=== PATIENT | female | born 1950 | race Caucasian/White ===

== ENCOUNTER 2017-05-14 11:55 | Day surgery (SDC) | payer MEDICARE ==
[2017-05-13 10:23] VITALS: BMI 47.0
[2017-05-14] MEDS ORDERED: Propofol 200 MG/20 ML VIAL ONE (13:11)
[2017-05-14] MEDS ORDERED: Lidocaine 1% PF 5 ML VIAL ONE (13:11)
--- NOTE | 2017-05-14 13:39 | OP ---
PREOPERATIVE DIAGNOSES: 1. Right upper quadrant pain. 2. Dysphagia. PROCEDURE: After informed consent was obtained, the patient was placed in the left lateral decubitus position. Anesthesia administered per the Anesthesia Department. Forward-viewing endoscope was ins erted into esophagus under direct visualization with ease and passed to the second portion of the duo denum with ease. Second portion of the duodenum and duodenal bulb were normal. The pylorus, antrum, body, fundus, and cardia were normal. Retroflexion in the stomach was normal except for a large hia alexandria hernia. The Z-line or squamocolumnar junction was slightly irregular and biopsies were taken to rule out Naidu's. The esophagus was otherwise normal. A 54-Khmer Salcido was passed with no resi stance. Reinsertion of the endoscope showed no post-dilatation changes. ASSESSMENT: 1. Large hiatal hernia. 2. Irregular squamocolumnar junction -- status post biopsy. 3. Otherwise, normal esophagogastroduodenoscopy. RECOMMENDATIONS: 1. Await histopathology. 2. Follow up in my office in 2-3 weeks.
== END 2017-05-14 14:06 | disposition home or self-care (01) ==
LOC: SDC 11:55
PROVIDERS: ATTEND Internal Medicine Gastroenterology
PROC: 0DB48ZX Excision of Esophagogastric Junction, Via Natural or Artificial Opening Endoscopic, Diagnostic (ICD-10-PCS; principal; 2017-05-14)
DX: K20.9 Esophagitis, unspecified (principal); R13.10 Dysphagia, unspecified; K44.9 Diaphragmatic hernia without obstruction or gangrene; E11.9 Type 2 diabetes mellitus without complications; I10 Essential (primary) hypertension; K21.9 Gastro-esophageal reflux disease without esophagitis; J45.909 Unspecified asthma, uncomplicated; Z79.1 Long term (current) use of non-steroidal anti-inflammatories (NSAID); Z79.51 Long term (current) use of inhaled steroids; Z79.84 Long term (current) use of oral hypoglycemic drugs; Z79.899 Other long term (current) drug therapy; Z91.048 Other nonmedicinal substance allergy status; Z96.653 Presence of artificial knee joint, bilateral; Z98.890 Other specified postprocedural states; Z87.891 Personal history of nicotine dependence; Z87.01 Personal history of pneumonia (recurrent)
CPT/HCPCS: 88305; 88312; 88313; J2001; J2704

== ENCOUNTER 2017-08-20 20:43 | Observation (INO) | payer MEDICARE ==
[2017-08-20 22:45] LABS: Anion Gap 12 mmol/L (10-20); BUN (Urea Nitrogen) 9 mg/dL (9.8-20.1); Calc. Creatinine Clearance 0 mL/min (70-130); Calcium 8.4 mg/dL (7.8-10.44); Carbon Dioxide 34 mmol/L (23-31); Chloride 98 mmol/L (98-107); Estimated GFR-MDRD 72; Glucose 101 mg/dL (80-115); Sodium 141 mmol/L (136-145)
[2017-08-20 22:51] LABS: Troponin I 0.014 ng/mL (< 0.028)
[2017-08-20 23:09] LABS: Potassium 2.6 mmol/L (3.5-5.1)
[2017-08-20] MEDS ORDERED: Potassium Chloride 20 MEQ TAB PO SCH (23:45)
[2017-08-20] MEDS ORDERED: Acetaminophen 325 MG TAB PO PRN (23:54)
[2017-08-21] MEDS ORDERED: Magnesium 2 GM/NS 0.9% 100 ML 2 GM in Premix Bag 1 BAG IVPB SCH (00:30)
[2017-08-21 01:15] VITALS: BMI 44.8
[2017-08-21 01:32] LABS: Troponin I 0.032 ng/mL (< 0.028)
[2017-08-21] MEDS ORDERED: hydrALAZINE 20 MG/ML VIAL SLOW IVP PRN (03:04)
[2017-08-21] MEDS ORDERED: HumaLOG 300 UNITS/3 ML VIAL SC PRN ×2 (03:04)
[2017-08-21] MEDS ORDERED: PROVENTIL INHALER 6.7 G (200 INHALATIONS) INH PRN (03:04)
[2017-08-21] MEDS ORDERED: Dextrose 5% in Water 1,000 ML IV PRN (03:04)
[2017-08-21] MEDS ORDERED: Acetaminophen 325 MG TAB PO PRN ×2 (03:04)
[2017-08-21] MEDS ORDERED: Mag-Al 1200 mg/1200 mg/30 ML UDCUP PO PRN (03:04)
[2017-08-21] MEDS ORDERED: Dextrose 50% Abboject 50 ML SYRINGE SLOW IVP PRN (03:04)
[2017-08-21] MEDS ORDERED: Milk Of Magnesia 30 ML UDCUP PO PRN (03:04)
--- NOTE | 2017-08-21 03:39 | HP ---
PRIMARY CARE PHYSICIAN: Dr. June Ramos. CHIEF COMPLAINT: Numbness and tingling and is in my hands and legs. HISTORY OF PRESENT ILLNESS: Ms. Ho is a very pleasant 67-year-old female that has a history of hy pertension as well as diabetes mellitus and COPD. She was in her usual state of health until the day before yesterday when she says both of her arms and legs started feeling numb and felt like they wer e going to sleep. She says this feeling got progressively worse and this was concerning, so she went to the emergency room. In the ER, she was found to have a potassium level of 2.6 and she also was f eeling generally weak and for this reason she was transferred to our facility for further evaluation. She was seen originally at the emergency room at [facility] in [place]. The patient states that she has not had any nausea, no vomiting, no diarrhea. She says she believes that she has been eatin g much better than she used to eat as she recently started on Weight [employer]. She said that she sta rted on 07/05. She has not had any excessive sweating. She has not been placed on any new medicatio ns. She has been on hydrochlorothiazide for quite some time and has never had any problems with that . When I asked if this has ever happened to her before, she says about 30 years ago. She was workin g at [employer] and the air conditioning went out and she says that shortly after that she started h aving very similar sensations. She went to her physician and was found that her potassium was low at that time, it was replaced and she says she had not had any problems since then. REVIEW OF SYSTEMS: Constitutional: No fevers, chills, no night sweats, no weight loss. HEENT: No headache, no dizziness, no visual changes, no sore throat, rhinorrhea, neck pain, no adenopathy. Pul monary: No hemoptysis, no cough, no wheezing. Cardiovascular: She said she had a brief episode of some chest pain at the other emergency room, but she attributes that as being an anxiety attack. She says it was very transient and it has since left. No PND, no orthopnea. Gastrointestinal: No abdo lowell pain, no nausea, no vomiting, no change in bowels. Genitourinary: No urinary frequency, hemat uria, no hesitancy. Neurologic: No focal weakness, numbness, no seizures. Psychiatric: No symptom s of anxiety or depression. Skin and integument: No skin changes. No rash. PAST MEDICAL HISTORY: Significant for hypertension, COPD, hyperlipidemia, gastroesophageal reflux di sease, and diabetes mellitus type 2. PAST SURGICAL HISTORY: She has had a x2, bilateral total knee replacements and a hernia re pair. ALLERGIES: No known drug allergies. SOCIAL HISTORY: She is a smoker and smokes a pack a day. Denies any alcohol use, no drugs. FAMILY HISTORY: No history of any inheritable diseases. CURRENT MEDICATIONS: Include omeprazole 40 mg daily, Spiriva HandiHaler 18 mcg daily, Ventolin 1 puf f q.4, metformin 500 mg twice a day, ropinirole 4 mg at bedtime, Breo Ellipta 1 inhalation daily, los lucrecia 100 mg daily, meloxicam 15 mg daily, metoprolol 50 mg twice a day, fluoxetine 40 mg twice a day , Flonase nasal spray daily, amlodipine 10 mg daily, hydrochlorothiazide 12.5 mg daily, Mucinex 600 m g daily, and Incruse Ellipta 1 inhalation daily. PHYSICAL EXAMINATION: GENERAL: She is alert and oriented. She appears to be in no acute distress. VITAL SIGNS: Her blood pressure was 119/73, heart rate 58, respiratory rate of 22, temperature is 98 .2. HEENT: Her pupils are equal, round, and reactive. Extraocular muscles are intact. Her sclerae are anicteric. Throat: No erythema, no exudates. NECK: No adenopathy, no bruits. LUNGS: Clear. No wheezing, no rales. CARDIOVASCULAR: She has a normal S1, S2. There is no S3 or S4. No murmurs, clicks, or rubs. ABDOMEN: Obese, it is soft, nontender, nondistended. Positive for bowel sounds. No rebound or guar ding. EXTREMITIES: There is no clubbing, cyanosis, no edema. She does have some chronic venous stasis beatrice nges and some hammertoe deformities. NEUROLOGIC: The exam is nonfocal once again. LABORATORY RESULTS: Sodium 141, potassium 2.6, chloride is 98, CO2 is 34, BUN of 9, creatinine 0.79, glucose is 101. Troponin 0.010. EKG was sinus rhythm, the rate was 56 and there were some nonspeci fic ST wave changes. ASSESSMENT: This is a pleasant 67-year-old female that presented to the ER with symptomatic hypokale martha. It is unclear why her potassium is still low that is possible it could be related to hydrochlor othiazide. However, she has been on this medication for some time and apparently had been stable on it. It could be that with a new diet that she has been on in the last month and a half. Her potassi um intake may have been more limited. She does not appear to have any gastrointestinal losses. She will be placed in observation. We will go ahead and replace both the magnesium, which turned out to be low as well as her potassium and hopefully once this was replaced her symptoms will resolve and sh e can be discharged home. I did explain to her that she should have close followup and monitoring wi th regards to her potassium to see if it will be maintained in the normal range.
[2017-08-21 04:49] LABS: Troponin I 0.025 ng/mL (< 0.028)
[2017-08-21] MEDS ORDERED: Potassium Chloride 20 MEQ TAB PO SCH ×2 (05:00→07:45)
[2017-08-21] MEDS ORDERED: Ipratropium Bromide 2.5 ml Neb NEB SCH (06:00)
[2017-08-21] MEDS ORDERED: Mometasone/Formoterol 120 PUFF INHALER INH SCH (06:30)
[2017-08-21 07:28] LABS: Anion Gap 14 mmol/L (10-20); BUN (Urea Nitrogen) 8 mg/dL (9.8-20.1); Calc. Creatinine Clearance 147 mL/min (70-130); Calcium 8.6 mg/dL (7.8-10.44); Carbon Dioxide 31 mmol/L (23-31); Chloride 100 mmol/L (98-107); Estimated GFR-MDRD 78; Glucose 110 mg/dL (80-115); Sodium 142 mmol/L (136-145)
[2017-08-21 07:31] LABS: Potassium 2.8 mmol/L (3.5-5.1)
[2017-08-21 07:49] LABS: Free T4 (Free Thyroxine) 1.12 ng/dL (0.70-1.48); Thyroid Stimulating Hormone 0.2058 uIU/mL (0.35-4.94)
[2017-08-21] MEDS ORDERED: metFORMIN 500 MG TAB PO SCH (08:00)
[2017-08-21] MEDS ORDERED: Non-Formulary Item 1 EACH (Fluticasone/Vilanterol [Breo Ellipta 200-25 Mcg Inh] 1 EACH) IH SCH (09:00)
[2017-08-21] MEDS ORDERED: FLUoxetine HCl 20 MG CAP PO SCH (09:00)
[2017-08-21] MEDS ORDERED: Losartan 25 MG TAB PO SCH (09:00)
[2017-08-21] MEDS ORDERED: Amlodipine 10 MG TAB PO SCH (09:00)
[2017-08-21] MEDS ORDERED: Fluticasone Propionate Nasal Spray 16 gm Bottle NASAL SCH (09:00)
[2017-08-21] MEDS ORDERED: Non-Formulary Item 1 EACH (Umeclidinium Bromide [Incruse Ellipta] 1 INH) IH SCH (09:00)
[2017-08-21] MEDS ORDERED: Meloxicam 15 MG TAB PO SCH (09:00)
[2017-08-21] MEDS ORDERED: Metoprolol Tartrate 50 MG TAB PO SCH (09:00)
[2017-08-21] MEDS ORDERED: Famotidine 20 MG TAB PO SCH (09:00)
[2017-08-21] MEDS ORDERED: Spiriva 18 MCG CAP (Box of 5 Caps) INH SCH (09:00)
[2017-08-21] MEDS ORDERED: Enoxaparin Sodium 40 MG/0.4 ML SYRINGE SC SCH (09:00)
[2017-08-21] MEDS ORDERED: guaiFENesin ER 600 MG TAB PO SCH (09:00)
--- NOTE | 2017-08-21 10:30 | RAD ---
PA AND LATERAL CHEST: Date: 08/21/17 HISTORY: Shortness of breath. FINDINGS: Comparison made with exam of 08/05/17. The heart size is borderline. There is mild pulmonary vascular congestion. There is evidence of old g ranulomatous disease. No lobar consolidation, pneumothorax, or pleural effusions are seen. There are degenerative changes in the spine. IMPRESSION: Findings suggestive of mild CHF. POS: [facility]
[2017-08-21 12:03] LABS: Anion Gap 10 mmol/L (10-20); BUN (Urea Nitrogen) 8 mg/dL (9.8-20.1); Calc. Creatinine Clearance 143 mL/min (70-130); Calcium 8.7 mg/dL (7.8-10.44); Carbon Dioxide 34 mmol/L (23-31); Chloride 102 mmol/L (98-107); Estimated GFR-MDRD 75; Glucose 158 mg/dL (80-115); Sodium 142 mmol/L (136-145)
[2017-08-21 12:16] LABS: Potassium, Urine 56.1 mmol/L
[2017-08-21 15:34] VITALS: BP 108/58; TEMP 97.9
--- NOTE | 2017-08-21 18:44 | DIS ---
DATE OF ADMISSION: 08/21/2017 DATE OF DISCHARGE: 08/21/2017 PRIMARY CARE PROVIDER: June Ramos PA-C DISPOSITION: Discharged home. FINAL DIAGNOSES: Hypokalemia, hypertension, chronic obstructive pulmonary disease, dyslipidemia and diabetes mellitus type 2. DISCHARGE MEDICATIONS: Includes Ellipta one inhalation daily, amlodipine 10 mg a day, Flonase 1 spra y each nose daily, Prozac 40 mg twice a day, metoprolol 50 mg twice a day, meloxicam 15 mg a day, Coz aar 100 mg a day, Breo Ellipta 225 one inhalation daily, ropinirole 4 mg at bedtime, metformin 500 mg p.o. b.i.d., Ventolin HFA inhaler 1 puff q.4 hours p.r.n., Spiriva HandiHaler one inhalation daily, omeprazole 40 mg a day. ALLERGIES: None. CODE STATUS: FULL. PENDING AT THE TIME OF DISCHARGE: Nothing. DIET: Diabetic. HOSPITAL COURSE: Patient transferred from [facility] to [facility]. She was in her usual stat e of health until she started feeling numb and tingling all over. She went to the emergency room whe re she was generally feeling weak, found to have potassium of 2.6, was transferred here. She has no history of nausea, vomiting, or diarrhea. She was given p.o. potassiums. Her followup basic metabol ic profile reveals potassium of 4.0. Her hydrochlorothiazide was stopped. She is being discharged h ome. Her renal function relatively was normal. BUN 8, creatinine 0.74 and 0.76. She is being disch arged home. She is given no potassium supplementation at this time. Her hydrochlorothiazide has bee n held as this was considered contributory. Spot urine sodium and potassium were done which revealed sodium of 152, potassium of 56 which did not suggest any adrenal problem. The patient is to see Dr. Ramos within 1 week. She will need a basic metabolic profile. Then, if her potassium is again low, she will need further investigation. It is pertinent that the patient had no edema and I feel c omfortable discharging her back home. She has been told if she has recurrent symptoms, please return to the emergency room.
[2017-08-21] MEDS ORDERED: rOPINIRole HCl 1 MG TAB PO SCH (21:00)
--- NOTE | 2017-08-23 18:04 | EKG ---
Test Reason : Blood Pressure : / mmHG Vent. Rate : 056 BPM Atrial Rate : 056 BPM P-R Int : 192 ms QRS Dur : 088 ms QT Int : 494 ms P-R-T Axes : 079 010 024 degrees QTc Int : 476 ms Sinus bradycardia Nonspecific ST and T wave abnormality Abnormal ECG Confirmed by PHANI MAN, JOSLYN ([id number]), graphic editor SARAH BROWNING ([id number]) on 08/23/2017 6:03:41 PM Referred By: Confirmed By:JOSLYN JERONIMO MD
== END 2017-08-21 16:04 | disposition home or self-care (01) ==
LOC: ERS 20:43 → 2SW 22:06
PROVIDERS: ADMIT Internal Medicine; ATTEND Internal Medicine
DX: E87.6 Hypokalemia (principal); I10 Essential (primary) hypertension; J44.9 Chronic obstructive pulmonary disease, unspecified; E78.5 Hyperlipidemia, unspecified; E11.9 Type 2 diabetes mellitus without complications; K21.9 Gastro-esophageal reflux disease without esophagitis; F17.210 Nicotine dependence, cigarettes, uncomplicated; Z79.84 Long term (current) use of oral hypoglycemic drugs; Z79.899 Other long term (current) drug therapy
CPT/HCPCS: 71046; 80048 ×3; 82962; 83735; 84133; 84300; 84439; 84443; 84484 ×3; 93005; 94640 ×2; 94664; 99285; G0378; 36415; 36416; J1650; J3475; J7644

== ENCOUNTER 2018-01-04 02:26 | Observation (INO) | payer MEDICARE ==
[2018-01-04 02:55] LABS: #Basophils 0.1 thou/uL (0.0-0.2); #Eosinphils 0.3 thou/uL (0.0-0.7); #Lymphocytes 3.1 thou/uL (1.20-3.40); #Monocytes 1.2 thou/uL (0.11-0.59); %Basophils 0.6 % (0.0-1.0); %Eosinophils 1.9 % (0.0-10.0); %Monocytes 8.2 % (0.0-10.0); %Neutrophils 68.4 % (42.0-75.0); Hemoglobin 13.6 g/dL (12.0-16.0); Mean Corpuscular HGB CONC 34.2 g/dL (32.0-36.0); Mean Corpuscular Hemoglobin 31.2 pg (27.0-31.0); Mean Corpuscular Volume 91.4 fL (78.0-98.0); Mean Platelet Volume 7.3 fL (7.4-10.4); Platelet Count 273 thou/uL (130-400); Red Blood Cell (RBC) Count 4.34 mill/uL (4.20-5.40); White Blood Cell (WBC) Count 14.6 thou/uL (4.8-10.8)
[2018-01-04 03:17] LABS: ALT (SGPT) 22 U/L (8-55); AST (SGOT) 26 U/L (5-34); Albumin 3.8 g/dL (3.4-4.8); Alkaline Phosphatase 53 U/L (40-150); Anion Gap 12 mmol/L (10-20); BUN (Urea Nitrogen) 16 mg/dL (9.8-20.1); Bilirubin, Total 0.3 mg/dL (0.2-1.2); CK (CPK) 107 U/L (29-168); Calc. Creatinine Clearance 0 mL/min (70-130); Calcium 9.7 mg/dL (7.8-10.44); Carbon Dioxide 27 mmol/L (23-31); Chloride 101 mmol/L (98-107); Estimated GFR-MDRD 65; Globulin 3.2 g/dL (2.4-3.5); Glucose 130 mg/dL (80-115); Lipase 32 U/L (8-78); Potassium 3.6 mmol/L (3.5-5.1); Sodium 136 mmol/L (136-145)
[2018-01-04 03:22] LABS: CKMB 1.3 ng/mL (0-6.6); Troponin I Less than 0.010 ng/mL (< 0.028)
[2018-01-04 03:29] LABS: Bilirubin Negative (Negative); Blood, Urine Negative (Negative); Clarity CLEAR (Clear); Glucose, Urine (Dipstick) Negative (Negative); Leukocyte Negative (Negative); Nitrite Negative (Negative); Protein, Urine (Dipstick) Negative (Neg-Trace); Specific Gravity, Urine 1.005 (1.002-1.036); Urobilinogen 0.2 mg/dL (0.2-1.0)
[2018-01-04 06:15] LABS: Troponin I Less than 0.010 ng/mL (< 0.028)
[2018-01-04] MEDS ORDERED: Ondansetron HCl/PF 4 MG/2 ML Vial IVP PRN ×2 (07:48→11:02)
[2018-01-04] MEDS ORDERED: Ondansetron ODT 4 MG TAB SL PRN (07:48)
[2018-01-04] MEDS ORDERED: Aspirin 325 MG TAB PO SCH (09:00)
[2018-01-04 09:07] LABS: Troponin I Less than 0.010 ng/mL (< 0.028)
[2018-01-04 09:36] VITALS: BMI 43.5
[2018-01-04] MEDS ORDERED: hydrALAZINE 20 MG/ML VIAL SLOW IVP PRN (10:22)
[2018-01-04] MEDS ORDERED: Lorazepam 0.5 MG TAB PO SCH (10:45)
--- NOTE | 2018-01-04 10:55 | RAD ---
CHEST 1 VIEW: HISTORY: COPD. Pain. COMPARISON: 08/21/17. FINDINGS: Normal cardiac silhouette. Pulmonary vessels and hilum are normal. Costophrenic angles are clear. No consolidation or mass. No pneumothorax or osseous abnormalities. Stable calcified granuloma in t he right lung base. IMPRESSION: No acute cardiopulmonary process. POS: [facility]
[2018-01-04] MEDS ORDERED: Dextrose 50% Abboject 50 ML SYRINGE SLOW IVP PRN (11:01)
[2018-01-04] MEDS ORDERED: Dextrose 5% in Water 1,000 ML IV PRN (11:01)
[2018-01-04] MEDS ORDERED: Nitroglycerin 0.4 MG TAB (25 Tab Bottle) PO PRN (11:01)
[2018-01-04] MEDS ORDERED: Insulin Regular 300 UNITS/3 ML VIAL SC PRN ×2 (11:01)
[2018-01-04] MEDS ORDERED: Calcium Carbonate 500 MG ChewTAB PO PRN (11:02)
[2018-01-04] MEDS ORDERED: Milk Of Magnesia 30 ML UDCUP PO PRN (11:02)
[2018-01-04] MEDS ORDERED: Acetaminophen 325 MG TAB PO PRN (11:02)
[2018-01-04] MEDS ORDERED: Senokot 8.6 MG TAB PO PRN (11:02)
[2018-01-04] MEDS ORDERED: Ondansetron ODT 4 MG TAB PO PRN (11:02)
[2018-01-04] MEDS ORDERED: Metoprolol Tartrate 25 MG TAB PO SCH (11:15)
[2018-01-04] MEDS ORDERED: Potassium Chloride 20 MEQ TAB PO SCH (11:15)
[2018-01-04] MEDS ORDERED: Spiriva 18 MCG CAP (Box of 5 Caps) INH SCH (11:15)
--- NOTE | 2018-01-04 11:25 | HP ---
DATE OF ADMISSION: 01/04/2018 PRIMARY CARE PHYSICIAN: Dr. June Ramos. CHIEF COMPLAINT: Chest discomfort with right-sided numbness and tingling. HISTORY OF PRESENT ILLNESS: The patient is a 67-year-old female with hypertension, hyperlipidemia, C OPD on home oxygen at night and diabetes mellitus type 2, presented to the emergency room with above complaint. Around 10:30 p.m. while she was at home, she had sudden onset of chest discomfort that wa s pressure-like, radiating to her back and neck. She also had some nausea with some headache over th e occipital area. The headache was more or less constant and pressure-like, without any aggravating or relieving factor. She denies any aggravating or relieving factor for chest pain. She also felt s omewhat dizzy. At the same time, she noticed right-sided numbness and tingling. She called EMS. No palpitations, syncope blurring of vision, facial asymmetry reported. In the emergency room, her initial vital signs showed temperature 98.7, respiration of 19, pulse rate of 60, blood pressure of 137/81 with O2 saturation 95% on [address] scan of the bra in was negative for acute CVA. The chest discomfort resolved after nitroglycerin by the EMS. CT ang iogram of the chest was negative as well. EKG showed sinus bradycardia with heart rate of [address]-T wave changes. She denies any chest pain at this time. PAST MEDICAL HISTORY: 1. Hypertension 2. Hyperlipidemia. 3. Chronic obstructive pulmonary disease on home oxygen, especially at night. 4. Gastroesophageal reflux disease. 5. Diabetes mellitus type 2. 6. Morbid obesity with a BMI of 43.5. 7. Hospitalization in 07/2017 for hypokalemia. 8. Chronic kidney disease stage 2. 9. Large hiatal hernia. 10. Episodic vertigo. PAST SURGICAL HISTORY: 1. . 2. Bilateral total knee replacement. 3. Hernia repair. 4. EGD and fine needle aspiration biopsy in 09/2016. ALLERGIES: No known drug allergies. CURRENT HOME MEDICATIONS: Patient does not remember all of her home medications. We will obtain acc urate list of medication from the pharmacy. She does not take aspirin on a daily basis. SOCIAL HISTORY: Patient continues to smoke up to 1 pack a day on daily basis. No alcohol or drug us e. She is FULL CODE and makes her own decision with the help of her family. FAMILY HISTORY: Negative for inheritable disease. REVIEW OF SYSTEMS: The following complete review of systems was negative, unless otherwise mentioned in the HPI or below: Constitutional: Weight loss or gain, ability to conduct usual activities. Skin: Rash, itching. Eyes: Double vision, pain. ENT/Mouth: Nose bleeding, neck stiffness, pain, tenderness. Cardiovascular: Palpitations, dyspnea on exertion, orthopnea. Respiratory: Shortness of breath, wheezing, cough, hemoptysis, fever or night sweats. Gastrointestinal: Poor appetite, abdominal pain, heartburn, nausea, vomiting, constipation, or diarr hea. Genitourinary: Urgency, frequency, dysuria, nocturia. Musculoskeletal: Pain, swelling. Neurologic/Psychiatric: Anxiety, depression. Allergy/Immunologic: Skin rash, bleeding tendency. PHYSICAL EXAMINATION: VITAL SIGNS: As discussed above. GENERAL: A 67-year-old female in no apparent distress. Denies any new focal findings. HEENT: Head is atraumatic, normocephalic. Sclerae are anicteric. Moist mucous membranes. No oral lesion. NECK: Supple, no JVD appreciated. No carotid bruit. LUNGS: Clear to auscultation bilaterally, no wheezing, rales or rhonchi. HEART: S1, S2 present. Regular rate and rhythm, no significant murmur, rubs, or gallops appreciated . ABDOMEN: Soft, nontender, bowel sounds present. EXTREMITIES: No edema or calf tenderness. NEUROLOGIC: Grossly nonfocal, moves all four extremities except for numbness over the right foot. C ranial nerves II through XII were normal on examination. Power was 5/5 in all extremities. PSYCHIATRY: Alert, awake, oriented x3. SKIN: Warm and dry. LYMPH NODES: No palpable lymph nodes in the neck. PERIPHERAL VASCULAR: Radial pulses palpable bilaterally. MUSCULOSKELETAL: No joint swelling or tenderness. LABORATORY FINDINGS: WBC was 14.6 without any left shift. Hemoglobin was 13.6. Troponins were nega tive. Ammonia was normal. BNP was normal. Magnesium 1.9, BUN 16, creatinine 0.89, sodium 136, pota ssium 3.6. TSH was normal. Urinalysis was negative for WBC, bacteria. IMAGING: EKG by my review as discussed above. Chest x-ray by my review was negative for infiltrate. CT scan of the brain and CT dissection protocol as discussed above. IMPRESSION AND PLAN: 1. Sudden onset of right-sided numbness and tingling, rule out transient ischemic attack. Patient w ill be monitored in the stroke unit. We will consult Neurology. We will obtain MRI of the brain, ca rotid Doppler and echocardiogram. We will continue stroke protocol with neuro checks and NIH. We wi ll consult Physical Therapy. Patient passed swallow evaluation. We will start low dose aspirin and statin. We will check fasting lipid profile in a.m. 2. Chest discomfort. Her troponins are negative so far. Echocardiogram will be obtained. We will schedule a stress test as outpatient. 3. Tobacco dependence. The patient was extensively counseled to quit smoking. 4. Chronic obstructive pulmonary disease on home oxygen. We will resume her home medications with n ebulizer treatments. 5. Hypertension. We will resume home medications once confirmed. 6. Diabetes mellitus type 2. We will hold metformin and start insulin sliding scale. 7. Anxiety and depression. We will continue Prozac. 8. Morbid obesity with a BMI of 43.5. Lifestyle modification emphasized. 9. Gastroesophageal reflux disease with large hiatal hernia. We will continue proton pump inhibitor s. 10. Chronic respiratory failure on home oxygen, especially at night. 11. Episodic vertigo. DISPOSITION: Probably in 24 hours. Plan of care was discussed with the patient in detail. She stated understanding.
--- NOTE | 2018-01-04 12:08 | MRI ---
MRI BRAIN WITHOUT CONTRAST: HISTORY: Stroke. COMPARISON: None. TECHNIQUE: Brain MRI is performed without intravenous Gadolinium administration. Multisequential, multiplanar i maging is performed. FINDINGS: No hemorrhage on the axial gradient echo sequence. Calvarium has a normal T1 marrow signal intensity. Midline brain parenchymal structures are unremark able. Central arterial flow voids are maintained. Absent restricted diffusion. Minimal white matter hyperintensities on the FLAIR sequence are felt to be due to chronic small-vesse l ischemic change. No parenchymal mass, mass effect, or midline shift. Age-appropriate atrophy. Cortical myles-white ma tter differentiation is preserved. No evidence of hydrocephalus. Adequate aeration of the sinuses and mastoid air cells. IMPRESSION: Absent restricted diffusion. No acute infarct. POS: [facility]
[2018-01-04] MEDS ORDERED: Ipratropium Bromide 2.5 ml Neb NEB SCH (13:00)
--- NOTE | 2018-01-04 13:08 | CON ---
DATE OF CONSULTATION: 01/04/2018 CHIEF COMPLAINT: Numbness. HISTORY OF PRESENT ILLNESS: The patient reports she was not feeling really well yesterday, and she came to the ER with a history of numbness of the right side of the body and face and arm and leg. She also has chest discomfort, which was more of a pressure, radiating to her back and neck. She also had headache yesterday, and currently she feels she is back to baseline. She had various investigations done in the ER including CT of the brain and CT angiogram of the chest and all of them were negative. PREVIOUS MEDICAL HISTORY: Hypertension; hyperlipidemia; COPD, on home oxygen at night; gastroesophageal reflux disease; diabetes, type 2; chronic kidney disease, stage 2; large hiatus hernia; episodic vertigo. PAST SURGICAL HISTORY: , bilateral total knee replacement, hernia repair, and EGD with fine-needle aspiration and biopsy. ALLERGIES: No known drug allergies. CURRENT MEDICATIONS: She is on albuterol nebulizer, amlodipine, atorvastatin, calcium carbonate, and IV fluids plus Pepcid, Prozac, glucagon as needed, and Apresoline as needed, plus insulin sliding scale along with Cozaar and metoprolol at the hospital. FAMILY HISTORY: Negative for CVA. SOCIAL HISTORY: The patient is a smoker, smokes 1 pack a day. Does not drink and lives with her family. REVIEW OF SYSTEMS: Pulmonary: Positive for shortness of breath. Cardiac: Positive for chest pain. Neurological: Positive for dizziness and right-sided numbness, which was transient and lasted 6 hours. Endocrine: Positive for diabetes and variation in her blood sugars. Dermatologic: Negative for any rash. Hematologic: Negative for any bleeding problems. GI: Negative for any nausea, vomiting, or any GI disturbance. LABORATORY WORKUP: White count 14.6, hemoglobin 13.6, hematocrit 39.7, platelets 273. Sodium 136, potassium 3.6, chloride 101, BUN 16, creatinine 0.86 , glucose 130, AST is 26, ALT 22, alkaline phosphatase 53, CPK 107, and TSH 1.8. She is pending further workup including lipid profile, and her MRI has been completed, report is pending at this time PHYSICAL EXAMINATION: GENERAL APPEARANCE: Somewhat obese lady, who is in bed. VITAL SIGNS: Blood pressure is 147/82, temperature 97.6, pulse 57, respiratory rate 18, O2 sats 96%. CHEST: Clear vesicular breathing. CARDIOVASCULAR: S1 and S2 heard, no murmurs. Carotids are clear. ABDOMEN: Soft, nontender, no organomegaly noted. NEUROLOGIC: Cranial nerves: Normal extraocular movements. Pupils are normal and reactive to light and no facial asymmetry noted. Tongue midline. No atrophy noted and normal elevation of palate. Normal hearing to finger rub. Sensation normal bilaterally. Pupils reactive to light equally. MOTOR EXAMINATION: Bulk normal, tone normal, strength 5/5 throughout in iliopsoas, hamstrings, quadriceps, ankle dorsiflexion, plantar flexion, deltoid, biceps, triceps, wrist extension/flexion, and finger extension/flexion bilaterally and deep tendon reflexes were 2+ throughout. Cerebellar: Normal [id number] heel to ayala. Sensory normal vibration, temperature, and proprioception bilaterally, and touch bilaterally. Gait not tested. IMPRESSION: Patient is a 67-year-old lady, who seems to have had some chest discomfort associated with some shortness of breath along with headache and right upper and lower extremity numbness, which lasted about 6 hours, which resolved completely at this time. She is not on aspirin at home and has risk factors for stroke including diabetes and hypertension. Her examination was normal. I did not detect any neurological deficits. Her clinical diagnosis is most consistent with transient ischemic attack. RECOMMENDATIONS: Complete her stroke workup including echocardiogram, and please note, if MRI is normal, she can go home once medically stable from the neurology standpoint. I will follow up on her MRI report. For stroke prophylaxis, we can use aspirin and agree with statin. ADDENDUM: MRI Brain is negative for acute CVA. Please continue ASA, complete her stroke work up. Call neurology if any questions. RAMY
--- NOTE | 2018-01-04 13:28 | ULT ---
CAROTID ULTRASOUND: HISTORY: Transient ischemic attack. COMPARISON: None. TECHNIQUE: Shaw scale, color flow, Doppler imaging with spectral waveform analysis is performed of the carotid a nd vertebral arteries performed. FINDINGS: RIGHT CAROTID: No significant atherosclerotic disease. Peak systolic velocity of the common carotid artery is 80.5 cm/s. Peak systolic velocity of internal carotid artery is 63.2 cm/2. Systolic ICA to CCA ratio is 0.8. LEFT CAROTID: Mild atherosclerotic disease involving the distal common carotid artery and carotid bifurcation. Pea k systolic velocity of the common carotid artery is 100.9 cm/s. Peak systolic velocity of the intern architect al carotid artery is 97.0 cm/s. Systolic ICA to CCA ratio is 1.0. Antegrade flow in both vertebral arteries. Complex predominantly cystic lesion in the left thyroid lobe, incompletely evaluated. IMPRESSION: 1. No sonographic evidence of hemodynamically significant stenosis. 2. Complex cystic lesion in the left thyroid lobe, incompletely evaluated. Nonemergent thyroid ultr asound can be performed. Note, the patient has had a thyroid ultrasound in August of 2016 which does demonstrate some of these cystic lesions to be present. POS: [facility]
--- NOTE | 2018-01-04 14:43 | CT ---
PRELIMINARY REPORT/[facility]/EMERGENTY AFTER-HOURS PROCEDURE CT Head Without Intravenous Contrast CLINICAL HISTORY: 67 years old, female; Signs and symptoms; Dizziness; Patient HX: Ems presents to ed f[facility] with HX of co pd with C/O l upper cp with radiation to back that began 4 hours [employer]. Following ems arrival to site, pt C/O rue and rle numbness. Pt given 1 nitro en route that relieved pt's cp. Pt reports SX began wit h BILLS. Pt is on o2 at home. ; Additional info: Pain on both shoulders/bills TECHNIQUE: Axial computed tomography images of the head/brain without intravenous contrast. COMPARISON: No relevant prior studies available. FINDINGS: Brain: Normal. No hemorrhage. No significant white matter disease. No edema. Ventricles: Normal. No ventriculomegaly. Bones/joints: Normal. No acute fracture. Soft tissues: Normal. Sinuses: Unremarkable as visualized. No acute sinusitis. Mastoid air cells: Unremarkable as visualized. No mastoid effusion. IMPRESSION: No acute intracranial hemorrhage. Thank you for allowing us to participate in the care of your patient. Dictated and Authenticated by: Edgardo Barakat MD 01/04/2018 3:49 AM Central Time ([place] & [place]) FINAL REPORT CT HEAD NONCONTRAST: FINDINGS/IMPRESSION: Agree with the preliminary interpretation provided above. No acute intracranial hemorrhage or mass effect.
--- NOTE | 2018-01-04 14:46 | CT ---
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 Following ems arrival to site, pt C/O rue and rle numbness. Pt given 1 nitro en route that relieved pt's cp. Pt reports SX began with BILLS. Pt is on o2 at home. ; Additional info: Pain on both shoulders/bills TECHNIQUE: Axial computed tomographic angiography images of the chest with intravenous contrast using pulmonary embolism protocol. MIP reconstructed images were created and reviewed. COMPARISON: No relevant prior studies available. FINDINGS: Pulmonary arteries: There is no evidence of peripheral filling defects within the pulmonary arterial circulation to suggest pulmonary embolism. Aorta: There is no evidence of aortic dissection, leak, rupture, or other complications. The aorta is normal. Lungs: There is a pulmonary parenchymal calcification consistent with remote granulomatous organism e xposure. There is subpleural atelectasis of the dependent portions of the lungs. No mass. Pleural space: Normal. No significant effusion. No pneumothorax. Heart: Normal. No cardiomegaly. No significant pericardial effusion. No evidence of RV dysfunction. Thyroid: There is heterogeneity of the thyroid gland possibly representing a goiter. Bones/joints: No acute fracture. No dislocation. Soft tissues: Normal. Lymph nodes: Normal. No enlarged lymph nodes. IMPRESSION: 1. There is no CT evidence of acute pulmonary embolism. 2. There is no evidence of aortic dissection, leak, rupture, or other complications. 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 Following ems arrival to site, pt C/O rue and rle numbness. Pt given 1 nitro en route that relieved pt's cp. Pt reports SX began with BILLS. Pt is on o2 at home. ; Additional info: Pain on both shoulders/bills TECHNIQUE: Axial computed tomographic angiography images of the abdomen with intravenous contrast. MIP reconstructed images were created and reviewed. COMPARISON: No relevant prior studies available. FINDINGS: Aorta: There is no evidence of aortic dissection, leak, rupture, or other complications. The aorta de monstrates mild atherosclerotic calcification. Celiac trunk and mesenteric arteries: No acute findings. No occlusion or significant stenosis. Renal arteries: No acute findings. No occlusion or significant stenosis. Lung bases: Normal. No mass. No consolidation. Liver: There is a ill-defined peripherally enhancing structure within the RIGHT hepatic lobe (probabl y segment 4/7). Finding is nonspecific and may represent hemangioma or neoplasm. Gallbladder and bile ducts: Normal. No calcified stones. No ductal dilation. Pancreas: Normal. No ductal dilation. No mass. Spleen: The spleen demonstrates punctate calcifications, consistent with remote granulomatous organis m exposure. Adrenals: Normal. No mass. Kidneys and ureters: The left kidney is normal. There is a focal right renal hypodensity that cannot be further characterized on the current examination. No hydronephrosis. Stomach and bowel: Normal. No obstruction. No mucosal thickening. Intraperitoneal space: Normal. No significant fluid collection. No free air. Bones/joints: No acute fracture. No dislocation. Soft tissues: Normal. No mass. Lymph nodes: Normal. No enlarged lymph nodes. IMPRESSION: 1. There is no evidence of aortic dissection, leak, rupture, or other complications. 2. There is a ill-defined peripherally enhancing structure within the RIGHT hepatic lobe. Finding is nonspecific and may represent hemangioma or neoplasm. Comparison with prior imaging if available is a dvised. If unavailable, nonemergent outpatient evaluation with MRI liver protocol is advised. Findings were discussed with TERRI FELIX at 01/04/2018 3:55 AM CDT. Thank you for allowing us to participate in the care of your patient. Dictated and Authenticated by: Edgardo Barakat MD 01/04/2018 3:56 AM Central Time ([place] & [place]) FINAL REPORT CT ANGIOGRAM OF THORCIC AND ABDOMINAL AORTA: History Dissection protocol. COMPARISON: None. TECHNIQUE: CT angiogram of the thoracic and abdominal aorta are performed in the axial plane. Three-dimensional reformatted images are submitted for interpretation. FINDINGS: This report is in agreement with the preliminary report by [facility]. No evidence of aneurysm or dissectio n. Heterogneeous-appearing thyroid gland. Nonemergent thyroid ultrasound is recommended. There is an enhancing focus in the right hepatic lobe. Better interrogation with a dedicated liver m ass protocol CT is recommended. Conversely, abdomen MRI can be performed. POS: [facility]
[2018-01-04] MEDS: Potassium Chloride 10 MEQ TAB PO SCH (18:29)
[2018-01-04] MEDS: Docusate 100 MG CAP PO SCH (20:42)
[2018-01-04] MEDS: Famotidine 20 MG TAB PO SCH (20:43)
[2018-01-04] MEDS: Metoprolol Tartrate 25 MG TAB PO SCH (20:43)
[2018-01-04] MEDS ORDERED: Amlodipine 5 MG TAB PO SCH (21:00)
[2018-01-04] MEDS ORDERED: Atorvastatin Calcium 10 MG TAB PO SCH (21:00)
[2018-01-04] MEDS ORDERED: Metoprolol Tartrate 50 MG TAB PO SCH (21:00)
[2018-01-04] MEDS ORDERED: Ropinirole Hcl [Ropinirole Er] 4 MG PO SCH ×2 (21:00→21:30)
[2018-01-05 05:06] LABS: #Basophils 0.1 thou/uL (0.0-0.2); #Eosinphils 0.2 thou/uL (0.0-0.7); #Monocytes 0.8 thou/uL (0.11-0.59); #Neutrophils 6.4 thou/uL (1.40-6.50); %Basophils 0.6 % (0.0-1.0); %Eosinophils 2.3 % (0.0-10.0); %Lymphocytes 20.9 % (21.0-51.0); %Monocytes 8.2 % (0.0-10.0); Hemoglobin 13.4 g/dL (12.0-16.0); Mean Corpuscular Hemoglobin 30.3 pg (27.0-31.0); Mean Corpuscular Volume 91.9 fL (78.0-98.0); Mean Platelet Volume 7.5 fL (7.4-10.4); Platelet Count 250 thou/uL (130-400); RBC Distribution Width 13.1 % (11.5-14.5); Red Blood Cell (RBC) Count 4.42 mill/uL (4.20-5.40); White Blood Cell (WBC) Count 9.4 thou/uL (4.8-10.8)
[2018-01-05 05:41] LABS: Anion Gap 13 mmol/L (10-20); BUN (Urea Nitrogen) 13 mg/dL (9.8-20.1); Calc. Creatinine Clearance 143 mL/min (70-130); Calcium 9.8 mg/dL (7.8-10.44); Carbon Dioxide 27 mmol/L (23-31); Cardiac Risk 3.6 (Less than 4.5); Chloride 104 mmol/L (98-107); Cholesterol 155 mg/dl (< 200 Desired); Estimated GFR-MDRD 78; Glucose 104 mg/dL (80-115); HDL Cholesterol 43 mg/dL (>60 Neg Risk); LDL Cholesterol, Calculated 87 mg/dL; Potassium 4.2 mmol/L (3.5-5.1); Sodium 140 mmol/L (136-145); Triglycerides 125 mg/dL (Less than 150)
[2018-01-05 08:04] VITALS: BP 146/77; TEMP 98.5
[2018-01-05] MEDS ORDERED: Hydrochlorothiazide 25 MG TAB PO SCH (09:00)
[2018-01-05] MEDS ORDERED: Losartan 25 MG TAB PO SCH (09:00)
[2018-01-05] MEDS ORDERED: FLUoxetine HCl 20 MG CAP PO SCH (09:00)
[2018-01-05] MEDS ORDERED: Aspirin 81 mg Enteric Coated Tablet PO SCH (09:00)
[2018-01-05] MEDS: Docusate 100 MG CAP PO SCH (09:15)
[2018-01-05] MEDS: Potassium Chloride 10 MEQ TAB PO SCH (09:15)
[2018-01-05] MEDS: Famotidine 20 MG TAB PO SCH (09:15)
[2018-01-05] MEDS: Metoprolol Tartrate 25 MG TAB PO SCH (09:18)
[2018-01-05] MEDS ORDERED: rOPINIRole HCl 2 MG TAB PO SCH (21:00)
[2018-01-05] MEDS ORDERED: Ropinirole Hcl [Ropinirole Er] 4 MG PO SCH (21:00)
--- NOTE | 2018-01-06 08:37 | DIS ---
DATE OF DISCHARGE: 01/05/2018 DISCHARGE DISPOSITION: Home. FOLLOWUP: Follow up with primary care physician, June Ramos in 1 week. The patient was seen and examined on the day of discharge. Denies any new complaints. DISCHARGE MEDICATIONS: 1. Aspirin 81 mg daily. 2. Lipitor 10 mg at bedtime. All other home medications were left unchanged. BRIEF HOSPITAL COURSE: The patient is a 67-year-old female with hypertension, hyperlipidemia and elsa betes mellitus type 2, presented to the hospital with chest discomfort along with right-sided numbnes s and tingling. Please refer to the history and physical for further details. The patient was admitted to the stroke unit with diagnosis of TIA. She underwent MRI of the brain th at was negative. Carotid Doppler was negative for hemodynamically significant stenosis. Her echocar diogram showed left ventricular ejection fraction of 55%-60% with diastolic dysfunction and mild tric uspid regurgitation. Right-sided numbness and tingling has resolved. Troponins were negative. She was advised to follow up with Dr. Lai for possible stress test. Tobacco cessation was emphasiz ed. She was also evaluated by Neurology, Dr. Richards, who recommended low dose aspirin along with sta tins. Her carotid Doppler showed some possible complex cystic lesion in the left thyroid lobe. Nonemergent thyroid ultrasound as outpatient was recommended. She also had an ultrasound in 08/2006 that showed some of this cystic lesion. FINAL DIAGNOSES: 1. Transient ischemic attack. 2. Chest discomfort, acute coronary syndrome ruled out. 3. Tobacco dependence. 4. Chronic obstructive pulmonary disease, on home oxygen. 5. Hypertension. 6. Diabetes mellitus type 2. 7. Anxiety and depression. 8. Morbid obesity with body mass index of 43.5. 9. Gastroesophageal reflux disease. 10. Large hiatal hernia. 11. Chronic respiratory failure on home oxygen, especially at night. 12. Episodic vertigo.
== END 2018-01-05 09:39 | disposition home or self-care (01) ==
LOC: ERS 02:26 → ERHOLD 04:00 → 2SE 06:41
PROVIDERS: ADMIT Hospitalist; ATTEND Hospitalist
DX: G45.9 Transient cerebral ischemic attack, unspecified (principal); R07.89 Other chest pain; I12.9 Hypertensive chronic kidney disease with stage 1 through stage 4 chronic kidney disease, or unspecified chronic kidney disease; E11.22 Type 2 diabetes mellitus with diabetic chronic kidney disease; N18.2 Chronic kidney disease, stage 2 (mild); J44.9 Chronic obstructive pulmonary disease, unspecified; F41.9 Anxiety disorder, unspecified; F32.9 Major depressive disorder, single episode, unspecified; K21.9 Gastro-esophageal reflux disease without esophagitis; K44.9 Diaphragmatic hernia without obstruction or gangrene; F17.210 Nicotine dependence, cigarettes, uncomplicated; J96.10 Chronic respiratory failure, unspecified whether with hypoxia or hypercapnia; E66.01 Morbid (severe) obesity due to excess calories; Z68.41 Body mass index [BMI] 40.0-44.9, adult; Z79.82 Long term (current) use of aspirin; Z79.899 Other long term (current) drug therapy
CPT/HCPCS: 70450; 70551; 71045; 71275; 80048; 80061; 81003; 82140; 82550; 82553; 82962; 83690; 83735; 83880; 84484 ×2; 85025; 93005; 93306; 93880; 94640 ×3; 96360; 97139; 99285; G0378; G8978; G8979; G8980; 36415; 36416; 80053; 84443; J7620

== ENCOUNTER 2018-01-23 12:26 | Emergency (ER) | payer MEDICARE ==
[2018-01-23 13:52] LABS: #Basophils 0.1 thou/uL (0.0-0.2); #Eosinphils 0.2 thou/uL (0.0-0.7); #Lymphocytes 2.5 thou/uL (1.20-3.40); #Monocytes 0.8 thou/uL (0.11-0.59); #Neutrophils 7.7 thou/uL (1.40-6.50); %Basophils 0.6 % (0.0-1.0); %Eosinophils 1.8 % (0.0-10.0); %Lymphocytes 22.4 % (21.0-51.0); %Monocytes 7.4 % (0.0-10.0); %Neutrophils 67.8 % (42.0-75.0); Hemoglobin 12.8 g/dL (12.0-16.0); Mean Corpuscular HGB CONC 33.6 g/dL (32.0-36.0); Mean Corpuscular Hemoglobin 30.8 pg (27.0-31.0); Mean Corpuscular Volume 91.8 fL (78.0-98.0); Mean Platelet Volume 7.2 fL (7.4-10.4); Platelet Count 236 thou/uL (130-400); RBC Distribution Width 13.2 % (11.5-14.5); Red Blood Cell (RBC) Count 4.16 mill/uL (4.20-5.40); White Blood Cell (WBC) Count 11.3 thou/uL (4.8-10.8)
[2018-01-23 13:53] LABS: Bilirubin Negative (Negative); Blood, Urine Negative (Negative); Clarity CLEAR (Clear); Glucose, Urine (Dipstick) Negative (Negative); Leukocyte Negative (Negative); Nitrite Negative (Negative); Protein, Urine (Dipstick) Negative (Neg-Trace); Specific Gravity, Urine 1.017 (1.002-1.036)
--- NOTE | 2018-01-23 13:56 | RAD ---
CHEST 1 VIEW: HISTORY: Dyspnea. COMPARISON: Chest radiograph 01/04/18. FINDINGS: Heart size is upper limits of normal. Mild pulmonary venous congestion. Calcified granuloma in the right lower lobe. No pneumothorax. IMPRESSION: Mild cardiomegaly and pulmonary venous congestion. POS: [facility]
[2018-01-23 14:16] LABS: ALT (SGPT) 25 U/L (8-55); AST (SGOT) 30 U/L (5-34); Albumin 3.7 g/dL (3.4-4.8); Alkaline Phosphatase 50 U/L (40-150); Anion Gap 13 mmol/L (10-20); BUN (Urea Nitrogen) 16 mg/dL (9.8-20.1); Bilirubin, Total 0.3 mg/dL (0.2-1.2); CK (CPK) 126 U/L (29-168); Calc. Creatinine Clearance 0 mL/min (70-130); Calcium 9.4 mg/dL (7.8-10.44); Carbon Dioxide 27 mmol/L (23-31); Chloride 103 mmol/L (98-107); Estimated GFR-MDRD 65; Globulin 3.1 g/dL (2.4-3.5); Glucose 108 mg/dL (80-115); Potassium 4.1 mmol/L (3.5-5.1); Protein, Total 6.8 g/dL (6.0-8.3); Sodium 139 mmol/L (136-145)
[2018-01-23 14:19] LABS: CKMB 1.5 ng/mL (0-6.6); Troponin I Less than 0.010 ng/mL (< 0.028)
== END 2018-01-23 14:33 | disposition home or self-care (01) ==
LOC: ERS 12:26
DX: R53.1 Weakness (principal); E11.9 Type 2 diabetes mellitus without complications; K21.9 Gastro-esophageal reflux disease without esophagitis; E78.5 Hyperlipidemia, unspecified; I10 Essential (primary) hypertension; J44.9 Chronic obstructive pulmonary disease, unspecified; F41.9 Anxiety disorder, unspecified; F17.210 Nicotine dependence, cigarettes, uncomplicated; Z79.899 Other long term (current) drug therapy; Z79.84 Long term (current) use of oral hypoglycemic drugs; Z79.82 Long term (current) use of aspirin
CPT/HCPCS: 36415; 71045; 80053; 81003; 82550; 82553; 83880; 84443; 84484; 85025; 93005

== ENCOUNTER 2018-03-17 10:51 | Outpatient (CLI) | payer MEDICARE ==
--- NOTE | 2018-03-17 14:08 | MRI ---
MRI LUMBAR SPINE WITHOUT CONTRAST: HISTORY: Intervertebral disk disorder with radiculopathy. Right leg and back pain. COMPARISON: None. TECHNIQUE: MRI lumbar spine is performed without intravenous Gadolinium administration. Multisequential, multip lanar imaging is performed. FINDINGS: Appropriate T1 marrow signal intensity in the lumbar vertebrae. Lumbar spine vertebral body height i s maintained. There is no fracture. No significant STIR hyperintensity to suggest vertebral body ed vi or ligamentous injury. There is T2 hyperintensity in the distal thoracic cord, incompletely evaluated. This hyperintensity appears to be central in location. The possibility of a syrinx versus artifact is raised, given that there is motion on the sagittal T2 weighted images, despite repeat imaging. There is symmetric signal intensity of the psoas muscles. The visualized solid organs are unremarkab le. A small, subcentimeter right renal cyst is suspected. The conus medullaris terminates at the inferior aspect of L1. T10-T11: At the T10-T11 level, there does appear to be mild loss of disk space height. There is pos terior element hypertrophy that results in at least mild to moderate central canal stenosis. Moderat e right and mild to moderate left foraminal narrowing. Evaluation is limited on this exam. T11-T12/T12-L1: T11-T12 and T12-L1 do not have any high grade central canal stenosis. L1-L2: Adequate disk hydration. No significant central canal stenosis. The neural foramina are pat ent. L2-L3: Desiccation with mild loss of disk space height. No significant posterior disk abnormality. No significant central canal stenosis. Mild bilateral foraminal narrowing. L3-L4: Minimal disk desiccation without significant loss of disk space height. No significant poste rior disk abnormality. There is mild ligamentum flavum thickening and facet hypertrophy. No signifi cant central canal stenosis. The neural foramina are patent bilaterally. L4-L5: Minimal disk desiccation. No significant loss of disk space height. No significant central canal stenosis. There is ligamentum flavum thickening and facet hypertrophy. The neural foramina ar e patent bilaterally. L5-S1: Minimal disk desiccation without significant loss of disk space height. No significant poste rior disk abnormality. No significant central canal stenosis. There is mild to moderate right and m ild left foraminal narrowing. There is 1.9 mm of retrolisthesis of T12 upon L1, 4.1 mm of retrolisthesis of L2 upon L3, and 3.5 mm of anterolisthesis of L4 upon L5. IMPRESSION: Degenerative changes of the lumbar spine as above. POS: [facility]
== END 2018-03-17 10:52 | disposition home or self-care (01) ==
LOC: TBSIIMAG 10:51 → MRI 10:52
PROVIDERS: ATTEND Specialist
DX: M51.16 Intervertebral disc disorders with radiculopathy, lumbar region (principal); M47.26 Other spondylosis with radiculopathy, lumbar region
CPT/HCPCS: 72148

== ENCOUNTER 2018-07-27 15:47 | Outpatient (CLI) | payer MEDICARE ==
--- NOTE | 2018-07-27 16:37 | RAD ---
2 VIEWS LEFT HIP: Date: 07/27/18 INDICATION: Low back pain and left hip pain. COMPARISON: Prior single view of pelvis dated 02/05/18. FINDINGS: No acute fracture or subluxation is evident. There is mild degenerative change of the symphysis pubis and left facet joint which is stable. IMPRESSION: No acute osseous abnormality. POS: [facility]
== END 2018-07-27 15:48 | disposition home or self-care (01) ==
LOC: TBSIIMAG 15:47
PROVIDERS: ATTEND Neurological Surgery
DX: M51.16 Intervertebral disc disorders with radiculopathy, lumbar region (principal); M51.06 Intervertebral disc disorders with myelopathy, lumbar region

== ENCOUNTER 2018-10-01 07:44 | Outpatient (CLI) | payer MEDICARE ==
--- NOTE | 2018-10-01 08:12 | RAD ---
FEXAM: Lumbar spine series 3 views HISTORY: Low back pain COMPARISON: 02/15/2018 study FINDINGS: The vertebral bodies are normal in height there is mild degenerative disc narrowing along t he course of lumbar spine. Minimal spondylolisthesis of L4 on L5 is present, this does not change sig nificantly between flexion and extension. Degenerative facet changes are present. IMPRESSION: Arthritic changes of the spine.
== END 2018-10-01 07:45 | disposition home or self-care (01) ==
LOC: TBSIIMAG 07:44
PROVIDERS: ATTEND Neurological Surgery
DX: M47.26 Other spondylosis with radiculopathy, lumbar region (principal)
CPT/HCPCS: 72100

== ENCOUNTER 2018-10-27 12:43 | Outpatient (CLI) | payer MEDICARE ==
--- NOTE | 2018-10-27 12:57 | RAD ---
EXAM: Chest 2 views: HISTORY: Dyspnea COMPARISON: 01/23/2018 FINDINGS: Old granulomatous disease. Heart size:Within normal limits. Lungs:Clear of acute process. Atherosclerotic changes of the aorta. No confluent pneumonia, overt edema, pleural effusion, pneumothorax, or other significant acute proce ss. IMPRESSION: Atherosclerosis of the aorta. No acute intrathoracic disease.
== END 2018-10-27 12:44 | disposition home or self-care (01) ==
LOC: RAD 12:43
PROVIDERS: ATTEND Internal Medicine
DX: R06.00 Dyspnea, unspecified (principal); I70.0 Atherosclerosis of aorta
CPT/HCPCS: 71046

== ENCOUNTER 2018-11-18 00:49 | Outpatient (CLI) | payer MEDICARE ==
[2018-11-18 10:35] LABS: Hemoglobin 13.6 g/dL (12.0-16.0); Mean Corpuscular Volume 90.7 fL (78.0-98.0); Mean Platelet Volume 7.9 fL (7.4-10.4); Platelet Count 269 thou/uL (130-400); RBC Distribution Width 12.8 % (11.5-14.5); Red Blood Cell (RBC) Count 4.53 mill/uL (4.20-5.40)
[2018-11-18 10:48] LABS: PTT 27.7 SEC (22.9-36.1); Prothrombin Time 13.3 SEC (12.0-14.7)
[2018-11-18 10:57] LABS: Anion Gap 14 mmol/L (10-20); BUN (Urea Nitrogen) 12 mg/dL (9.8-20.1); Calc. Creatinine Clearance 0 mL/min (70-130); Calcium 9.9 mg/dL (7.8-10.44); Carbon Dioxide 29 mmol/L (23-31); Chloride 98 mmol/L (98-107); Estimated GFR-MDRD 67; Glucose 165 mg/dL (80-115); Potassium 4.5 mmol/L (3.5-5.1); Sodium 136 mmol/L (136-145)
--- NOTE | 2018-11-21 13:30 | EKG ---
Test Reason : Blood Pressure : / mmHG Vent. Rate : 067 BPM Atrial Rate : 067 BPM P-R Int : 188 ms QRS Dur : 092 ms QT Int : 422 ms P-R-T Axes : -10 -01 032 degrees QTc Int : 445 ms Normal sinus rhythm Inferior infarct (cited on or before 04-JAN-2018) Possible Anterior infarct , age undetermined Abnormal ECG When compared with ECG of 23-JAN-2018 13:12, No significant change was found Confirmed by DR. Lukas HEREDIA ([id number]) on 11/21/2018 1:30:07 PM Referred By: KATIA Confirmed By:DR. Lukas HEREDIA
== END 2018-11-18 00:50 | disposition home or self-care (01) ==
LOC: LABBT 00:49
PROVIDERS: ATTEND Neurological Surgery
DX: Z01.818 Encounter for other preprocedural examination (principal); M48.061 Spinal stenosis, lumbar region without neurogenic claudication; M51.36 Other intervertebral disc degeneration, lumbar region
CPT/HCPCS: 80048; 85027; 85610; 85730; 93005; 93010

== ENCOUNTER 2018-11-20 06:35 | Inpatient (IN) | payer MEDICARE ==
--- NOTE | 2018-11-19 23:43 | HP ---
HISTORY OF PRESENT ILLNESS: Ms. Ho is back to our office. She continues to be debilitated by back pain and thigh pain. Dr. Londono feels as though the hips are not the source of her discomfort, so she returns to our office. Indeed, there is severe pain with standing in the low back, in the right groin, medial thigh, and both anterior thighs. There is progressive weakness with more standing and sitting makes it marginally better. Lying flat in bed was weight off, makes much better. There is no permanent weakness nor incontinence. REVIEW OF SYSTEMS: A 10-point review of systems has been completed and is negative other than stated in the above HPI. PAST MEDICAL HISTORY: Asthma or hay fever. Chest pain or pressure, chronic cough, bronchitis, diabetes, fainting, frequent colds, pneumonia, high blood pressure, indigestion, nervous mental disorder, rheumatism, and shortness of breath. ALLERGIES: LATEX, ITCHING. PAST SURGICAL HISTORY: in 1972 and 1984, both knees replaced in 2014, hernia repair. FAMILY HISTORY: Father is , diagnosed with cancer. Mother is alive with no past medical history. Children are alive with hypertension. SOCIAL HISTORY: The patient is a smoker. Denies drug use. She is single, has two children. MEDICATIONS: 1. Spiriva. 2. Metoprolol. 3. Losartan. 4. Omeprazole. 5. Metformin. 6. Fluoxetine. 7. Amlodipine,. 8. Meloxicam. 9. Hydrochlorothiazide. PHYSICAL EXAMINATION: CONSTITUTIONAL: A well-appearing, well-nourished, alert. RESPIRATIONS: Normal work of breathing on room air. NEUROLOGIC: Gait and station very slow. Gait does not lean forward. Motor exam on the exam table, good strength in iliopsoas, quadriceps, hamstrings, anterior tibialis EHL, gastrocs, and TF. Sensory exam, there is no dermatomal sensory loss in L1, L2, L3, L4, L5, or S1. IMAGING: Flexion-extension shows retrolisthesis at L2-L3, does extenuated with extension by 2 mm, anterolisthesis at L4-L5. MRI reveals L2-L3 stenosis and L3 foraminal disease. ASSESSMENT AND PLAN: Lumbar radiculopathy, spondylolisthesis with hip pain on the left. Dr. Gamboa has offered decompression laminectomy. The patient states that she understands the risks and is willing to proceed with surgery. Job ID: [id number]
[2018-11-20] MEDS ORDERED: Albuterol Sulfate 2.5 mg/3 ml Neb ONE (09:26)
[2018-11-20] MEDS ORDERED: Albuterol Sulfate 2.5 mg/3 ml Neb NEB SCH (09:30)
[2018-11-20] MEDS ORDERED: Fentanyl 250 MCG/5 ML VIAL ONE (10:18)
[2018-11-20] MEDS ORDERED: Midazolam HCl 2 mg/2 ml Vial ONE (10:18)
[2018-11-20] MEDS ORDERED: Bupivacaine HCl 0.5%/Epinephrine 1:200,000/PF 30 ml Vial ONE (10:22)
[2018-11-20] MEDS ORDERED: Thrombin 5000 UNITS/5 ML VIAL ONE (10:22)
[2018-11-20] MEDS ORDERED: Sodium Chloride 0.9% 20 ML ONE (10:22)
[2018-11-20] MEDS ORDERED: PHENYLEPHRINE-NS 100 MCG/ML 10 ML SYRINGE ONE (11:35)
[2018-11-20] MEDS ORDERED: Phenylephrine HCL 10 MG/ML VIAL ONE (11:38)
[2018-11-20] MEDS ORDERED: Ondansetron PF 4 MG/2 ML Vial IVP PRN (14:24)
[2018-11-20] MEDS ORDERED: diphenhydrAMINE 25 MG CAP PO PRN (14:24)
[2018-11-20] MEDS ORDERED: tiZANidine HCl 4 MG TAB PO PRN (14:24)
[2018-11-20] MEDS ORDERED: Promethazine 25 MG TAB PO PRN (14:24)
[2018-11-20] MEDS ORDERED: Morphine 4 MG/ML VIAL SLOW IVP PRN (14:24)
[2018-11-20] MEDS ORDERED: Acetaminophen 325 MG TAB PO PRN (14:24)
[2018-11-20] MEDS ORDERED: Milk Of Magnesia 30 ML UDCUP PO PRN (14:24)
[2018-11-20] MEDS ORDERED: Bisacodyl 10 MG SUPP PR PRN (14:24)
[2018-11-20] MEDS ORDERED: Mag-Al 1200 mg/1200 mg/30 ML UDCUP PO PRN (14:24)
[2018-11-20] MEDS ORDERED: diphenhydrAMINE 50 MG/ML VIAL IVP PRN (14:24)
[2018-11-20] MEDS ORDERED: Acetaminophen/Codeine 30-300mg Tablet PO PRN ×2 (14:24→18:00)
[2018-11-20] MEDS ORDERED: Promethazine HCl 25 MG/ML VIAL IM PRN ×2 (14:24→14:54)
[2018-11-20] MEDS ORDERED: Ondansetron HCl/PF 4 MG/2 ML Vial IVP PRN (14:54)
[2018-11-20] MEDS ORDERED: Promethazine HCl 25 MG/ML VIAL SLOW IVP PRN (14:54)
[2018-11-20] MEDS ORDERED: Fentanyl 100 MCG/2 ML VIAL ONE ×2 (15:01→16:05)
[2018-11-20] MEDS ORDERED: Morphine 2 MG/ML SYRINGE SLOW IVP PRN (15:50)
[2018-11-20] MEDS ORDERED: PROVENTIL INHALER 6.7 G (200 INHALATIONS) INH PRN (17:00)
[2018-11-20] MEDS: CEFAZOLIN 2 GM in Premix Bag 1 BAG IVPB SCH (18:28)
--- NOTE | 2018-11-20 18:31 | OP ---
DATE OF PROCEDURE: 11/20/2018 COUNTY ENGINEER: Anahi Moe PA-C PREOPERATIVE INDICATION: Treat pain and prevent neurological deterioration. PREOPERATIVE DIAGNOSES: L2-L3 stenosis with neurogenic claudication and L3-L4 left far-lateral intervertebral disk herniation with L3 radiculopathy. POSTOPERATIVE DIAGNOSES: L2-L3 stenosis with neurogenic claudication and L3-L4 left far-lateral intervertebral disk herniation with L3 radiculopathy. OPERATIVE PROCEDURES: Decompressive laminectomy, medial facetectomy, foraminotomy L2-L3, left L3-L4 far-lateral microdiskectomy with foraminotomy, and operating microscope. PREOPERATIVE MEDICATIONS: Ancef 2 g IV. DRAIN NUMBER: Zero. DRAIN TYPE: None. DESCRIPTION OF PROCEDURE: The patient was brought to the operating room. General endotracheal anesthesia was induced. Due to her size, we used a James frame for this operation. We rolled her into the prone position with the appropriate padding for the chest and hips on the James frame. A lateral fluoro radiograph was used to plan our incision. The lumbar skin was sterilely prepped and draped. We opened with a 10 blade knife and controlled bleeding with bipolar cautery. We used monopolar cautery to dissect through copious amounts of subcutaneous tissue all the way to the thoracodorsal fascia. The fascia was incised in the midline and reflected the paraspinal muscles off the spinous process and lamina of L2, L3, and L4. Extremely long self-retaining retractors had to be placed. A lateral fluoro radiograph was used to confirm the levels upon which we were operating. We then used Adson rongeurs to remove the spinous process of L2 on the top of L3. We fashioned a laminectomy at L2-L3 with Kerrison rongeurs and we widened our laminectomy defect until we were lateral to the dura. We performed medial facetectomies on both sides. We ensured that the L2 and L3 nerve roots could pass out there for respective foramina without impingement. The left L3 nerve root was more difficult to palpate due to the intervertebral disk tissue. We then turned our attention to the far-lateral disk at L3-L4. The operative microscope was brought in the field. Under microscopic magnification using microsurgical techniques, we carefully drilled away the superior portion of the facet joint at L3-L4 and the lateral portion of the pars interarticularis of L3. Using Kerrison rongeurs, we removed the bony material until we decompressed it until we opened the foramen from the outside. A Camacho ball probe was passed from the center of the canal out the foramen to guide our dissection. Soft tissue was removed from around the nerve root. We dissected superior to the root, inferior to the root, and dorsally to the root. On the ventral surface of the root, there was seemed to be intervertebral disk protrusion. However, this was densely calcified. This disk protrusion must be an old calcified over quite a number of years. We elected to protrude from both inside and outside of the canal. We drilled away the left lateral portion of the lamina of L3. Using a Kerrison rongeur, we extended the laminectomy inferiorly on the left side. A self-retaining retractor was placed here. We could appreciate the calcified intervertebral disk and ventral to the axilla of the nerve root. Using a pushing curette, we reduced some of that osteophyte away from the ventral aspect of the nerve. A Camacho ball probe could more easily pass out the foramen over the nerve after that. There was some thinning of the dura with some arachnoid visible in the axilla of the nerve root. There was no bartolo CSF leak. Nonetheless, we elected to reinforce the dura with DuraSeal tissue sealant. We irrigated copiously with bacitracin irrigation before applying this glue. We then applied the tissue sealant and treated the wound with the vancomycin powder. We then closed in a watertight fashion. We applied a sterile dressing. This was a clean case, no contamination. (Due to the patient's extreme size, it was difficulty with microsurgery such extreme depth. This was more arduous surgery than average.) Job ID: [id number]
[2018-11-20] MEDS: metFORMIN 500 MG TAB PO SCH (18:35)
[2018-11-20] MEDS ORDERED: Potassium Chloride 20 MEQ TAB PO SCH (21:00)
[2018-11-20] MEDS ORDERED: ALPRAZolam 0.5 MG TAB PO PRN (21:00)
[2018-11-20] MEDS ORDERED: Pantoprazole 40 MG VIAL IVP SCH (21:00)
[2018-11-20] MEDS ORDERED: Gabapentin 300 MG CAP PO SCH (21:00)
[2018-11-20] MEDS: Sodium Chloride 0.9% 1,000 ML IV SCH (21:05)
[2018-11-20] MEDS: rOPINIRole HCl 0.5 MG TAB PO SCH (21:26)
[2018-11-20] MEDS: Metoprolol Tartrate 50 MG TAB PO SCH (21:26)
[2018-11-21] MEDS: CEFAZOLIN 2 GM in Premix Bag 1 BAG IVPB SCH (00:05)
[2018-11-21] MEDS: Sodium Chloride 0.9% 1,000 ML IV SCH (03:53)
[2018-11-21] MEDS: Acetaminophen/Codeine 30-300mg Tablet PO PRN ×2 (06:01→11:18)
--- NOTE | 2018-11-21 07:53 | PRG ---
DATE OF SERVICE: 11/21/2018 Ms. Ho is feeling relatively well this morning. Her head of bed has been up only 15 degrees overnight and she has not had any headaches. She tells me her legs feel better than they did prior to surgery, which is quite encouraging. Overnight, the vitals have been stable. I do not find any new deficits in the legs. The goal for Ms. Ho is to get out of bed this morning. Once she proves to the nurses that she is safe walking and with all activities of daily living, she can be discharged. That can happen this morning or after lunch. Job ID: [id number]
[2018-11-21] MEDS: metFORMIN 500 MG TAB PO SCH (08:35)
[2018-11-21] MEDS: Metoprolol Tartrate 50 MG TAB PO SCH (08:36)
[2018-11-21] MEDS ORDERED: Losartan 25 MG TAB PO SCH (09:00)
[2018-11-21] MEDS ORDERED: Hydrochlorothiazide 25 MG TAB PO SCH (09:00)
[2018-11-21] MEDS ORDERED: Fluticasone Propionate Nasal Spray 16 gm Bottle NASAL SCH (09:00)
[2018-11-21] MEDS ORDERED: Gabapentin 300 MG CAP PO SCH (09:00)
[2018-11-21] MEDS ORDERED: guaiFENesin ER 600 MG TAB PO SCH (09:00)
[2018-11-21] MEDS ORDERED: pyridOXINE 50 MG (B6) TAB PO SCH (09:00)
[2018-11-21] MEDS ORDERED: FLUoxetine HCl 20 MG CAP PO SCH (09:00)
[2018-11-21] MEDS: rOPINIRole HCl 0.5 MG TAB PO SCH (09:38)
[2018-11-21 11:17] VITALS: BMI 49.6
[2018-11-21 11:58] VITALS: BP 128/50; TEMP 98.2
[2018-11-21] MEDS ORDERED: Atorvastatin Calcium 10 MG TAB PO SCH (21:00)
--- NOTE | 2018-11-23 09:51 | PQF ---
MONAE VO L GERARD MD [id number] SURG B- [id number] I have been requested by billing and coding to document a BMI. There is sufficient data in the chart to calculate a BMI. MTDD
--- NOTE | 2018-11-24 14:06 | PQF ---
MONAE VO L GERARD MD [id number] SURG B- [id number] CLINICAL DOCUMENTATION IMPROVEMENT CLARIFICATION FORM: ICD-10 Updated PLEASE DO AN ADDENDUM TO THE PROGRESS NOTE WITH ANY DOCUMENTATION UPDATES OR ADDITIONS AND CARRY THROUGH TO DC SUMMARY. THANK YOU. DATE: 11-23-18 ATTN: DR. BENITO Please exercise your independent, professional judgment in responding to the clarification form. Clinical indicators are provided on the bottom of this form for your review Please check appropriate box(s): BMI > 40 with associated diagnosis of: (check one) [ ] Morbid (Severe) Obesity due to excess calories [ ] Overweight [ ] Obesity [ ] Other diagnosis [ ] Unable to determine For continuity of documentation, please document condition throughout progress notes and discharge summary. Thank You. BMI < 19 Under weight 19 - 24.9 Healthy 25.0 - 29.9 Slightly Overweight 30.0 - 34.9 Obese 35.0 - 39.9 Severely Obese 40.0 and Over Morbidly Obese CLINICAL INDICATORS - SIGNS / SYMPTOMS / LABS BMI of: 49.6 (OBESE) 11-21 NURSING INTERVENTIONS -24 OP NOTE (THONG): D/T PATIENT'S EXTREME SIZE, IT WAS DIFFICULTY W/ MICROSURGERY SUCH EXTREME DEPTH. THIS WAS MORE ARDUOUS SURGERY THAN AVERAGE. RISK FACTORS 5- H&P (GOURLAY): PMH - DM; HIGH BLOOD PRESSURE; NERVOUS MENTAL DISORDER 5-24 OP NOTE (THONG): L2-L3 STENOSIS W/ NEUROGENIC CLAUDICATION AND L3-L4 LEFT FAR-LATERAL INTRAVERTEBRAL DISK HERNIATION W/ L3 RADICULOPATHY TREATMENTS: 5-24 OP NOTE (THONG): * L2-L3 STENOSIS W/ NEUROGENIC CLAUDICATION AND L3-L4 LEFT FAR-LATERAL INTRAVERTEBRAL DISK HERNIATION W/ L3 RADICULOPATHY * D/T PATIENT'S EXTREME SIZE, IT WAS DIFFICULTY W/ MICROSURGERY SUCH EXTREME DEPTH. THIS WAS MORE ARDUOUS SURGERY THAN AVERAGE. THANK YOU, EMILY (This form is maintained as a part of the permanent medical record) 2014 [employer]. All Rights Reserved Emily Segura RN, BS [email or web address] [employer] [facility]
== END 2018-11-21 13:54 | disposition home or self-care (01) | DRG 520 ==
LOC: SDC 06:35 → SURG B 16:33
PROVIDERS: ADMIT Neurological Surgery; ATTEND Neurological Surgery
PROC: 01NB0ZZ Release Lumbar Nerve, Open Approach (ICD-10-PCS; principal; 2018-11-20)
PROC: 0SB20ZZ Excision of Lumbar Vertebral Disc, Open Approach (ICD-10-PCS; 2018-11-20)
DX: M48.062 Spinal stenosis, lumbar region with neurogenic claudication (principal); E11.9 Type 2 diabetes mellitus without complications; I10 Essential (primary) hypertension; J45.909 Unspecified asthma, uncomplicated; F17.200 Nicotine dependence, unspecified, uncomplicated; M51.16 Intervertebral disc disorders with radiculopathy, lumbar region; Z96.653 Presence of artificial knee joint, bilateral; Z91.048 Other nonmedicinal substance allergy status; Z79.84 Long term (current) use of oral hypoglycemic drugs; Z98.890 Other specified postprocedural states
CPT/HCPCS: 76000; C9113; J0670; J0690; J2250; J2370; J3010; J3370; J3490; J7611; J7620

== ENCOUNTER 2019-03-03 15:27 | Observation (INO) | payer MEDICARE ==
[2019-03-03 16:13] LABS: #Eosinphils 0.1 thou/uL (0.0-0.7); #Lymphocytes 1.9 thou/uL (1.20-3.40); #Monocytes 0.9 thou/uL (0.11-0.59); #Neutrophils 7.2 thou/uL (1.40-6.50); %Basophils 0.5 % (0.0-1.0); %Eosinophils 1.4 % (0.0-10.0); %Lymphocytes 18.7 % (21.0-51.0); %Monocytes 9.1 % (0.0-10.0); %Neutrophils 70.3 % (42.0-75.0); Mean Corpuscular HGB CONC 32.6 g/dL (32.0-36.0); Mean Corpuscular Hemoglobin 28.8 pg (27.0-31.0); Mean Corpuscular Volume 88.1 fL (78.0-98.0); Mean Platelet Volume 7.5 fL (7.4-10.4); Platelet Count 277 thou/uL (130-400); RBC Distribution Width 13.6 % (11.5-14.5); Red Blood Cell (RBC) Count 4.17 mill/uL (4.20-5.40); White Blood Cell (WBC) Count 10.3 thou/uL (4.8-10.8)
--- NOTE | 2019-03-03 16:24 | RAD ---
EXAM: Chest one view: HISTORY: Chest pain COMPARISON: 02/01/2019 FINDINGS: Stable old granulomatous disease. Heart size: Within normal limits. Lungs: Clear of acute process. No evidence for pneumonia, pleural effusion, acute edema, or pneumothorax, or other significant acute process. IMPRESSION: No significant acute intrathoracic disease.
[2019-03-03 16:32] LABS: ALT (SGPT) 81 U/L (8-55); AST (SGOT) 58 U/L (5-34); Albumin 3.6 g/dL (3.4-4.8); Alkaline Phosphatase 55 U/L (40-150); Anion Gap 12 mmol/L (10-20); BUN (Urea Nitrogen) 9 mg/dL (9.8-20.1); Bilirubin, Total 0.3 mg/dL (0.2-1.2); CK (CPK) 65 U/L (29-168); Calc. Creatinine Clearance 0 mL/min (70-130); Calcium 9.2 mg/dL (7.8-10.44); Carbon Dioxide 27 mmol/L (23-31); Chloride 99 mmol/L (98-107); Estimated GFR-MDRD 79; Globulin 3.5 g/dL (2.4-3.5); Glucose 118 mg/dL (80-115); Potassium 3.4 mmol/L (3.5-5.1); Protein, Total 7.1 g/dL (6.0-8.3); Sodium 135 mmol/L (136-145)
[2019-03-03] MEDS ORDERED: methylPREDNISolone Sod Succ/PF 125 MG/2 ML VIAL ONE (16:51)
[2019-03-03 19:31] VITALS: BMI 48.0
[2019-03-03] MEDS ORDERED: Ondansetron ODT 4 MG TAB PO PRN (19:46)
[2019-03-03] MEDS ORDERED: Ondansetron PF 4 MG/2 ML Vial IVP PRN (19:46)
[2019-03-03] MEDS ORDERED: Senokot S 8.6-50 MG TAB PO PRN (19:46)
[2019-03-03] MEDS ORDERED: Magnesium 2 GM/50 ML 2 GM in Premix Bag 1 BAG IVPB SCH (20:00)
[2019-03-03] MEDS ORDERED: Potassium Chloride 20 MEQ TAB PO SCH (20:00)
[2019-03-03] MEDS ORDERED: Famotidine/PF 20 mg/2ml Vial SLOW IVP SCH (21:00)
[2019-03-03] MEDS: Sodium Chloride 0.9% 1,000 ML IV SCH (21:49)
[2019-03-03] MEDS ORDERED: ALPRAZolam 0.5 MG TAB PO PRN (22:38)
[2019-03-03] MEDS ORDERED: HumaLOG 300 UNITS/3 ML VIAL SC PRN ×2 (22:55)
[2019-03-03] MEDS ORDERED: Dextrose 5% in Water 1,000 ML IV PRN (22:55)
[2019-03-03] MEDS ORDERED: Dextrose 50% Abboject 50 ML SYRINGE SLOW IVP PRN (22:55)
[2019-03-03] MEDS: rOPINIRole HCl 2 MG TAB PO SCH (23:41)
[2019-03-04 00:34] LABS: Troponin I 0.013 ng/mL (< 0.028)
--- NOTE | 2019-03-04 01:22 | HP ---
TIME OF ASSESSMENT: 1800. PRIMARY CARE PHYSICIAN: Dr. Ramos. CHIEF COMPLAINT: Chest pain. HISTORY OF PRESENT ILLNESS: Ms. Ho is a 68-year-old woman with a past medical history of diabetes, hyperthyroidism, hyperlipidemia, and hypertension who presents with complaints of chest pain that woke her from her sleep around noon. The patient states the pain was severe and rates it a 12/10 in severity. States it was stabbing in nature in the center of her chest radiating to her left shoulder. She reports having some associated shortness of breath due to the severity of her pain. She states this lasted approximately 1 hour before it fully resolved. She was given nitro x2 by EMS en route to the hospital and states it helped to ease her pain to about a 2 or 3 out of 10 in severity. She states she has not had pain like this in the past. Reports having mild cough earlier today which was productive for clear sputum. Denies having any fevers, chills, or sweats. States she did take aspirin at home. She apparently was recently treated for a spider bite with antibiotics that she completed yesterday. Denies having any further episodes of chest pain. The patient states that she takes care of her 80-year-old mother and therefore is under a lot of stress because of this. REVIEW OF SYSTEMS: The patient reports having normal appetite without any nausea or vomiting. No headaches or dizziness. No abdominal pain or cramping. Normal bowel movements and denies any urinary symptoms. She does report noting her blood pressure was on the lower side en route to the EMS, however, this was after being given nitroglycerin. PAST MEDICAL HISTORY: 1. Diabetes. 2. Hyperthyroidism. 3. GERD. 4. Hyperlipidemia. 5. Hypertension. 6. Previous TIA. 7. Anxiety. PAST SURGICAL HISTORY: 1. . 2. Hernia repair. 3. Orthopedic surgery. SOCIAL HISTORY: The patient is fully independent and cares for her elderly mother. Reports smoking e-cigarettes and quit smoking cigarettes one year ago. Denies any drug use. Denies any alcohol consumption. ALLERGIES: NO KNOWN DRUG ALLERGIES. CURRENT MEDICATIONS: 1. Metformin. 2. Breo Ellipta. 3. Omeprazole. 4. Losartan. 5. Metoprolol succinate. 6. Meloxicam. 7. Flexeril. 8. Hydrochlorothiazide. 9. Gabapentin. PHYSICAL EXAMINATION: GENERAL: The patient appears obese, well developed, and in no acute distress. VITAL SIGNS: Temperature 98, pulse 61, respirations 20, blood pressure 165/85, O2 sat 98% on room air. HEENT: Normocephalic and atraumatic. Pupils are equal, round, reactive to light. Sclerae without icterus. Oropharynx is clear. NECK: Supple. LUNGS: Clear to auscultation bilaterally. CARDIAC: Regular rate and rhythm. No chest wall tenderness to palpation. ABDOMEN: Obese, soft, nontender, nondistended. Normoactive bowel sounds present. EXTREMITIES: No lower leg edema. NEUROLOGIC: Alert and oriented x3. SKIN: Without rash or jaundice. LABORATORY DATA: White blood count 10.3, hemoglobin 12, hematocrit 36.7, platelets 277. Sodium 135, potassium 3.4, anion gap 12, BUN 9, creatinine 0.73, GFR 79, glucose 118, calcium 9.2, magnesium 1.5, total bilirubin 0.3, AST 58, ALT 81, alkaline phosphatase 55, CK 65, troponin negative. Total protein 7.1, albumin 3.6. Lipase normal. IMAGING DATA: Chest x-ray demonstrated no significant acute intrathoracic disease. IMPRESSION AND PLAN: Ms. Ho is a 68-year-old woman who presents with chest pain and has been referred for management of the following. 1. Acute coronary syndrome rule out. We will continue to trend troponins. EKG done in the emergency department showed heart rate of 63 with PACs, normal ST segments. We have requested a stress test. Her last echo was done in December 2017, at which time she had an EF of 55% to 60% with normal-sized left atrium and left ventricle. There was impaired relaxation compatible with diastolic dysfunction. Mild tricuspid regurgitation present. Dr. Morrison stated no indication to repeat an echo at this present time. We will admit to tele obs. We will add on a magnesium as well as TSH. We will also add a BNP. 2. Electrolyte disturbances. We will replace her potassium and magnesium and continue to monitor electrolytes, replace as needed. 3. Hypertension. We will resume home medications and monitor her blood pressure. 4. Diabetes mellitus. We will initiate sliding scale and monitor glucose. We will hold her metformin given plans to give contrast for the stress test. 5. Gastrointestinal prophylaxis. We will resume her home dose of Protonix. 6. Deep venous thrombosis prophylaxis. Mechanical SCDs. 7. Code status full. Her surrogate decision maker is Larry Ho. The patient's case discussed with attending who agrees with plan of care as described above. Job ID: [id number]
[2019-03-04 06:21] LABS: #Lymphocytes 1.5 thou/uL (1.20-3.40); #Monocytes 0.5 thou/uL (0.11-0.59); #Neutrophils 8.8 thou/uL (1.40-6.50); %Basophils 0.3 % (0.0-1.0); %Eosinophils 0.1 % (0.0-10.0); %Lymphocytes 13.8 % (21.0-51.0); %Monocytes 4.5 % (0.0-10.0); %Neutrophils 81.4 % (42.0-75.0); Hemoglobin 12.1 g/dL (12.0-16.0); Mean Corpuscular Hemoglobin 28.2 pg (27.0-31.0); Mean Corpuscular Volume 88.1 fL (78.0-98.0); Mean Platelet Volume 7.6 fL (7.4-10.4); Platelet Count 292 thou/uL (130-400); RBC Distribution Width 13.5 % (11.5-14.5); White Blood Cell (WBC) Count 10.8 thou/uL (4.8-10.8)
[2019-03-04 06:32] LABS: Anion Gap 14 mmol/L (10-20); BUN (Urea Nitrogen) 10 mg/dL (9.8-20.1); Calc. Creatinine Clearance 153 mL/min (70-130); Calcium 9.5 mg/dL (7.8-10.44); Carbon Dioxide 28 mmol/L (23-31); Chloride 98 mmol/L (98-107); Estimated GFR-MDRD 76; Glucose 194 mg/dL (80-115); Sodium 136 mmol/L (136-145); Troponin I 0.014 ng/mL (< 0.028)
[2019-03-04] MEDS: Gabapentin 300 MG CAP PO SCH ×3 (13:18→20:04)
[2019-03-04] MEDS: FLUoxetine HCl 20 MG CAP PO SCH (13:19)
[2019-03-04] MEDS: Metoprolol Tartrate 50 MG TAB PO SCH ×2 (13:19→20:05)
[2019-03-04] MEDS: Atorvastatin Calcium 10 MG TAB PO SCH (13:20)
[2019-03-04] MEDS: pyridOXINE 50 MG (B6) TAB PO SCH (13:20)
--- NOTE | 2019-03-04 15:20 | PDOC.HOSPP ---
- Subjective Encounter Date: 03/04/19 Encounter Time: 12:00 Subjective: no chest pain or palp now no fever or sob is amb in room - Objective Vital Signs & Weight: Vital Signs (12 hours) Temp Pulse Resp BP Pulse Ox 03/04/19 12:50 97.6 F 60 20 162/68 H 97 03/04/19 07:18 98.4 F 60 24 H 124/65 96 03/04/19 03:47 98.2 F 68 21 H 146/65 H 95 Weight Weight 307 lb I&O: 03/03/19 03/04/19 03/05/19 06:59 06:59 06:59 Intake Total 419 Balance 419 Result Diagrams: 03/04/19 05:26 03/04/19 05:26 Additional Labs: Accuchecks 03/04/19 03/03/19 10:43 23:31 POC Glucose 127 H 230 H Hospitalist ROS - Medication Medications: Active Medications Generic Name Dose Route Start Last Admin Trade Name Freq PRN Reason Stop Dose Admin Atorvastatin Calcium 10 mg 03/04/19 09:00 03/04/19 13:20 Lipitor PO 10 mg DAILY DULCE MARIA Administration Fluoxetine HCl 60 mg 03/04/19 09:00 03/04/19 13:19 Prozac PO 60 mg DAILY DULCE MARIA Administration Gabapentin 600 mg 03/04/19 09:00 03/04/19 13:20 Neurontin PO Not Given TID DULCE MARIA Sodium Chloride 1,000 mls @ 55 mls/hr 03/03/19 23:55 03/03/19 21:49 Normal Saline 0.9% IV 1,000 mls .[id number] DULCE MARIA Administration Metoprolol Tartrate 50 mg 03/04/19 09:00 03/04/19 13:19 Lopressor PO 50 mg BID DULCE MARIA Administration Pantoprazole Sodium 40 mg 03/04/19 09:00 03/04/19 13:19 Protonix PO 40 mg DAILY DULCE MARIA Administration Pyridoxine HCl 100 mg 03/04/19 09:00 03/04/19 13:20 Vitamin B 6 PO 100 mg DAILY DULCE MARIA Administration Ropinirole HCl 4 mg 03/04/19 21:00 03/03/19 23:41 Requip PO 4 mg HS DULCE MARIA Administration - Exam General Appearance: NAD, awake alert Eye: PERRL, anicteric sclera ENT: no oropharyngeal lesions, moist mucosa Neck: supple, no JVD Heart: RRR, no murmur Respiratory: no wheezes, no rales Gastrointestinal: soft, non-tender, non-distended, normal bowel sounds Extremities: no cyanosis, no edema Neurological: CN's grossly intact, no focal deficits Psychiatric: normal affect, A&O x 3 Hosp A/P (1) Chest pain Code(s): R07.9 - CHEST PAIN, UNSPECIFIED Status: Acute Qualifiers: Chest pain type: unspecified Qualified Code(s): R07.9 - Chest pain, unspecified (2) Dyslipidemia Code(s): E78.5 - HYPERLIPIDEMIA, UNSPECIFIED Status: Chronic (3) Obesity Code(s): E66.9 - OBESITY, UNSPECIFIED Status: Chronic Qualifiers: Obesity classification: adult class 3 (BMI >= 40) Body mass index: BMI 45.0 -49.9 (4) COPD (chronic obstructive pulmonary disease) Status: Chronic Qualifiers: COPD type: chronic bronchitis (5) DM type 2 (diabetes mellitus, type 2) Status: Chronic Qualifiers: Diabetes mellitus fci insulin use: without fci use (6) HTN (hypertension) Code(s): I10 - ESSENTIAL (PRIMARY) HYPERTENSION Status: Chronic Qualifiers: Hypertension type: essential hypertension Qualified Code(s): I10 - Essential (primary) hypertension - Plan is for 2 day stress test due to weight/body habitus trop x3 -ve, no arrhythmia or ischemic changes seen on telemetry continue asp, lipitor, lopressor, requip, neurontin metformin is held for now, continue coverage with humalog hemostable may dc if stress test is -ve
[2019-03-04] MEDS: Acetaminophen/Codeine 30-300mg Tablet PO PRN (17:01)
[2019-03-04] MEDS: Sodium Chloride 0.9% 1,000 ML IV SCH ×2 (17:02→19:08)
[2019-03-04] MEDS ORDERED: Regadenoson 0.4 MG/5 ML SYRINGE ONE (17:06)
[2019-03-04] MEDS: PROVENTIL INHALER 6.7 G (200 INHALATIONS) INH PRN (19:16)
[2019-03-05] MEDS: rOPINIRole HCl 2 MG TAB PO SCH (02:46)
[2019-03-05] MEDS: Acetaminophen/Codeine 30-300mg Tablet PO PRN (07:26)
[2019-03-05] MEDS: Atorvastatin Calcium 10 MG TAB PO SCH (08:03)
[2019-03-05] MEDS: Gabapentin 300 MG CAP PO SCH (08:03)
[2019-03-05] MEDS: pyridOXINE 50 MG (B6) TAB PO SCH (08:03)
[2019-03-05] MEDS: FLUoxetine HCl 20 MG CAP PO SCH (08:03)
[2019-03-05] MEDS: PROVENTIL INHALER 6.7 G (200 INHALATIONS) INH PRN (08:04)
[2019-03-05] MEDS: Metoprolol Tartrate 50 MG TAB PO SCH (08:04)
--- NOTE | 2019-03-05 10:07 | NM ---
EXAM: CARDIAC SPECT HISTORY: Chest pain, hypertension, diabetes, dyslipidemia TECHNIQUE: A myocardial perfusion scan was performed using the single isotope 2 day protocol with mahsa hnetium 99m sestamibi. [31 mCi] was injected intravenously for the rest exam followed by 33 mCifor the stress study. Pharmacologic stress with Lexiscan was monitored and interpreted by TEMO Branham FINDINGS: Homogeneous tracer distribution is seen in the myocardial segments on stress and rest image s without fixed or reversible defects. Gated SPECT LVEF: 65% Wall motion exam: Normal IMPRESSION: Normal myocardial perfusion scan
[2019-03-05 11:42] VITALS: BP 144/68; TEMP 97.6
--- NOTE | 2019-03-07 01:28 | EKG ---
Test Reason : Blood Pressure : / mmHG Vent. Rate : 063 BPM Atrial Rate : 063 BPM P-R Int : 182 ms QRS Dur : 086 ms QT Int : 476 ms P-R-T Axes : 068 018 029 degrees QTc Int : 487 ms Sinus rhythm with Premature atrial complexes with Abberant conduction Cannot rule out Inferior infarct , age undetermined Abnormal ECG Confirmed by TENISHA CARBAJAL ([id number]), restaurant expeditor SARAH BROWNING ([id number]) on 03/07/2019 1:27:20 AM Referred By: Confirmed By:TENISHA CARBAJAL
--- NOTE | 2019-03-07 08:22 | DIS ---
DATE OF ADMISSION: 03/03/2019 DATE OF DISCHARGE: 03/05/2019 DISCHARGE DISPOSITION: Home. PRIMARY DISCHARGE DIAGNOSIS: Chest pain, which is noncardiac. SECONDARY DISCHARGE DIAGNOSES: Diabetes mellitus type 2, hypertension, dyslipidemia, chronic obstructive pulmonary disease. PROCEDURES DONE DURING HOSPITALIZATION: Nuclear stress test, two-day protocol done, which showed EF of 65% with normal wall motion, that was normal. This was a normal myocardial perfusion scan. Chest x-ray done, which showed no acute intrathoracic disease. H and H 12 and 37, platelet count 292, white count of 10. BUN is 10, creatinine is 0.7. Troponin x3 negative. BNP 132. DISCHARGE MEDICATIONS: 1. Lipitor 10 mg p.o. daily. 2. Flexeril 20 mg p.o. three times daily p.r.n. 3. Prozac 60 mg p.o. daily. 4. Gabapentin 600 mg p.o. 3 times daily. 5. Mucinex p.r.n. 6. Hydrochlorothiazide 25 mg daily. 7. DuoNeb's q.4 hourly p.r.n. 8. Losartan 100 mg p.o. daily. 9. Metformin 500 mg p.o. twice daily. 10. Metoprolol 50 mg twice daily. 11. Omeprazole 40 mg p.o. daily. 12. K-Dur 20 mEq p.o. at bedtime. 13. Vitamin B6 100 mg p.o. daily. 14. Ropinirole 4 mg p.o. at bedtime. 15. Tizanidine p.r.n. 16. Xanax p.r.n. ALLERGIES: ADHESIVES. DISCHARGE PLAN: The patient needs to follow up with her primary care physician, June Ramos PA-C in 1 week. BRIEF COURSE DURING HOSPITALIZATION: The patient initially came in with complaints of chest pain. Due to multiple risk factors, the patient was placed under observation on telemetry. She has had complete workup towards ACS, which was negative. She was on 2-day protocol of stress test due to BMI of 48. Troponin x3 were negative. Stress test showed no reversible ischemia. The patient remained totally asymptomatic during her brief stay here. She is hemodynamically stable and will be shortly discharged home. She is on multiple psychotropic medications and pain medications with a BMI of 48 and this needs to be closely monitored and likely tapered per primary care physician's advice in the outpatient setting. Please note, I have seen and examined the patient on the day of discharge. Job ID: [id number] MTDD
== END 2019-03-05 13:02 | disposition home or self-care (01) ==
LOC: ERS 15:27 → 2SW 17:43
PROVIDERS: ADMIT Internal Medicine; ATTEND Internal Medicine
DX: R07.9 Chest pain, unspecified (principal); I10 Essential (primary) hypertension; E11.9 Type 2 diabetes mellitus without complications; E78.5 Hyperlipidemia, unspecified; J44.9 Chronic obstructive pulmonary disease, unspecified; E03.9 Hypothyroidism, unspecified; K21.9 Gastro-esophageal reflux disease without esophagitis; F41.9 Anxiety disorder, unspecified; E66.9 Obesity, unspecified; Z68.42 Body mass index [BMI] 45.0-49.9, adult; Z79.84 Long term (current) use of oral hypoglycemic drugs; Z79.899 Other long term (current) drug therapy; Z86.73 Personal history of transient ischemic attack (TIA), and cerebral infarction without residual deficits; Z87.891 Personal history of nicotine dependence; Z91.048 Other nonmedicinal substance allergy status
CPT/HCPCS: 71045; 78452; 80048; 80053; 82550; 82962 ×3; 83690; 83735; 83880; 84145; 84484 ×3; 85025 ×2; 93005; 93017; 94640 ×3; 96361 ×2; 96365; 96366; 96367; 96375 ×2; 97139 ×2; 99285; A9500; G0378 ×4; 36415; 36416; J1956; J2785; J2930; J3475; S0028

== ENCOUNTER 2019-06-02 12:28 | Outpatient (CLI) | payer MEDICARE ==
--- NOTE | 2019-06-14 14:22 | MMO ---
Bilateral MAMMO Bilat Screen [facility]. CLINICAL HISTORY: Patient is 68 years old and is seen for screening. The patient has no family history of breast cancer. The patient has no personal history of cancer. VIEWS: The views performed were: bilateral craniocaudal with tomosynthesis; bilateral mediolateral oblique; and bilateral mediolateral oblique with tomosynthesis. FILMS COMPARED: The present examination has been compared to prior imaging studies performed at [facility] on 01/22/2010 and 03/14/2010. This study has been interpreted with the assistance of computer-aided detection. MAMMOGRAM FINDINGS: There are scattered fibroglandular densities. There are no suspicious masses, suspicious calcifications, or new areas of architectural distortion. IMPRESSION: THERE IS NO MAMMOGRAPHIC EVIDENCE OF MALIGNANCY. A ROUTINE FOLLOW-UP MAMMOGRAM IN 1 YEAR IS RECOMMENDED. THE RESULTS OF THIS EXAM WERE SENT TO THE PATIENT. ACR BI-RADS Category 1 - Negative MAMMOGRAPHY NOTE: 1. A negative mammogram report should not delay a biopsy if a dominant of clinically suspicious mass is present. 2. Approximately 10% to 15% of breast cancers are not detected by mammography. 3. Adenosis and dense breasts may obscure an underlying neoplasm. Reported by: GAUDENCIO KATHLEEN MD Electonically Signed: [id number]
== END 2019-06-02 12:29 | disposition home or self-care (01) ==
LOC: BICMAMMO 12:28
PROVIDERS: ATTEND Physician Assistant
DX: Z12.31 Encounter for screening mammogram for malignant neoplasm of breast (principal)
CPT/HCPCS: 77063; 77067

== ENCOUNTER 2019-12-30 14:15 | Outpatient (CLI) | payer MEDICARE ==
--- NOTE | 2019-12-30 15:56 | RAD ---
EXAM: LUMBAR SPINE FOUR VIEWS INCLUDING STANDING FLEXION AND EXTENSION LATERAL VIEWS: 12/30/19 HISTORY: Lumbar radicular pain. COMPARISON: 10/01/18 Laminectomy changes at L2-L3. Generalized spondylosis and disc osteophytosis. Moderate retrolisthesis of L2 on L3 more prominent than on the prior study. Grade I anterolisthesis of L3 on L4 more prominent on the prior study but no evidence for instability or abnormal translation between flexion and extension. Grade I anterolisthesis of L4 on L5 more marked than on the prior study without evidence for abnormal translation between flexion and extension. IMPRESSION: Extensive spondylosis. Laminectomy changes at L2-3. Worsening retrolisthesis of L2 on L3 and anterol isthesis of L3 on L4 with little change anterolisthesis of L4 on L5. POS: RRE
== END 2019-12-30 14:16 | disposition home or self-care (01) ==
LOC: BICRAD 14:15
PROVIDERS: ATTEND Nurse Practitioner Family
DX: M47.26 Other spondylosis with radiculopathy, lumbar region (principal); M43.16 Spondylolisthesis, lumbar region; Z98.890 Other specified postprocedural states
CPT/HCPCS: 72110

== ENCOUNTER 2020-01-10 16:14 | Emergency (ER) | payer MEDICARE ==
--- NOTE | 2020-01-10 17:28 | RAD ---
AP PELVIS: Indications: Fall with injury, pain. Comparison: 02-05-18 AP pelvis film FINDINGS: Pelvis appears intact. Hips appear intact. Mild symmetric degenerative change at both hips appear sta ble. IMPRESSION: No acute findings. POS: AGW
--- NOTE | 2020-01-10 17:29 | RAD ---
SACRUM AND COCCYX THREE VIEWS: History: Fall with injury to tailbone. Pain. FINDINGS: No evidence of fracture. Coccyx appears intact. Degenerative change at the lumbosacral region. IMPRESSION: No acute fracture identified. POS: AGW
--- NOTE | 2020-01-10 17:39 | RAD ---
LUMBAR SPINE SERIES THREE VIEWS: History: Fall at home. Back and tailbone pain. Comparison: 12-30-2019 FINDINGS: The vertebral bodies all maintain normal height. Severe disc narrowing and spondylolisthesis at L3 on L4 are again demonstrated. There is mild disc narrowing at L4-5. There is moderate disc narrowing at L2-3 and L5-S1. Pedicles are intact. Laminectomy change at the L3 level are again demonstrated. IMPRESSION: Stable appearance to the spine. No acute injury. POS: LISA
[2020-01-10 18:21] LABS: #Basophils 0.1 thou/uL (0.0-0.2); #Eosinphils 0.3 thou/uL (0.0-0.7); #Lymphocytes 2.3 thou/uL (1.20-3.40); #Monocytes 1.1 thou/uL (0.11-0.59); #Neutrophils 6.8 thou/uL (1.40-6.50); %Basophils 0.5 % (0.0-1.0); %Eosinophils 2.6 % (0.0-10.0); %Lymphocytes 21.8 % (21.0-51.0); %Monocytes 10.3 % (0.0-10.0); %Neutrophils 64.8 % (42.0-75.0); Hemoglobin 11.7 g/dL (12.0-16.0); Mean Corpuscular HGB CONC 30.6 g/dL (32.0-36.0); Mean Corpuscular Hemoglobin 26.9 pg (27.0-31.0); Mean Platelet Volume 8.8 fL (7.4-10.4); Platelet Count 245 thou/uL (130-400); RBC Distribution Width 13.7 % (11.5-14.5); Red Blood Cell (RBC) Count 4.34 mill/uL (4.20-5.40); White Blood Cell (WBC) Count 10.4 thou/uL (4.8-10.8)
[2020-01-10 18:47] LABS: ALT (SGPT) 21 U/L (8-55); AST (SGOT) 30 U/L (5-34); Albumin 3.6 g/dL (3.4-4.8); Alkaline Phosphatase 72 U/L (40-110); Anion Gap 11 mmol/L (10-20); BUN (Urea Nitrogen) 12 mg/dL (9.8-20.1); Bilirubin, Total 0.3 mg/dL (0.2-1.2); Calc. Creatinine Clearance 0 mL/min (70-130); Calcium 9.2 mg/dL (7.8-10.44); Carbon Dioxide 32 mmol/L (23-31); Chloride 100 mmol/L (98-107); Estimated GFR-MDRD 64; Globulin 3.7 g/dL (2.4-3.5); Glucose 121 mg/dL (83-110); Potassium 3.8 mmol/L (3.5-5.1); Protein, Total 7.3 g/dL (6.0-8.3); Sodium 139 mmol/L (136-145)
== END 2020-01-10 18:58 | disposition home or self-care (01) ==
LOC: ERS 16:14
DX: M54.5 Low back pain (principal); E11.9 Type 2 diabetes mellitus without complications; I10 Essential (primary) hypertension; E66.9 Obesity, unspecified; J44.9 Chronic obstructive pulmonary disease, unspecified; E05.90 Thyrotoxicosis, unspecified without thyrotoxic crisis or storm; E78.5 Hyperlipidemia, unspecified; K21.9 Gastro-esophageal reflux disease without esophagitis; E78.00 Pure hypercholesterolemia, unspecified; F41.9 Anxiety disorder, unspecified; F32.9 Major depressive disorder, single episode, unspecified; Z86.73 Personal history of transient ischemic attack (TIA), and cerebral infarction without residual deficits; Z87.891 Personal history of nicotine dependence; Z79.84 Long term (current) use of oral hypoglycemic drugs; Z79.899 Other long term (current) drug therapy; W07.XXXA Fall from chair, initial encounter
CPT/HCPCS: 36415; 72100; 72170; 72220; 80053; 85025

== ENCOUNTER 2020-02-16 12:25 | Emergency (ER) | payer MEDICARE ==
[2020-02-16 13:03] LABS: #Eosinphils 0.2 thou/uL (0.0-0.7); #Lymphocytes 2.3 thou/uL (1.20-3.40); #Neutrophils 10.3 thou/uL (1.40-6.50); %Basophils 0.2 % (0.0-1.0); %Eosinophils 1.3 % (0.0-10.0); %Lymphocytes 16.8 % (21.0-51.0); %Monocytes 7.4 % (0.0-10.0); %Neutrophils 74.3 % (42.0-75.0); Hemoglobin 13.6 g/dL (12.0-16.0); Mean Corpuscular HGB CONC 31.6 g/dL (32.0-36.0); Mean Corpuscular Hemoglobin 27.4 pg (27.0-31.0); Mean Corpuscular Volume 86.9 fL (78.0-98.0); Mean Platelet Volume 8.2 fL (7.4-10.4); Platelet Count 275 thou/uL (130-400); RBC Distribution Width 13.8 % (11.5-14.5); Red Blood Cell (RBC) Count 4.94 mill/uL (4.20-5.40); White Blood Cell (WBC) Count 13.9 thou/uL (4.8-10.8)
[2020-02-16 13:33] LABS: ALT (SGPT) 26 U/L (8-55); AST (SGOT) 27 U/L (5-34); Albumin 3.7 g/dL (3.4-4.8); Alkaline Phosphatase 91 U/L (40-110); Anion Gap 13 mmol/L (10-20); BUN (Urea Nitrogen) 24 mg/dL (9.8-20.1); Bilirubin, Total 0.4 mg/dL (0.2-1.2); Calc. Creatinine Clearance 0 mL/min (70-130); Calcium 9.1 mg/dL (7.8-10.44); Carbon Dioxide 25 mmol/L (23-31); Chloride 100 mmol/L (98-107); Estimated GFR-MDRD 62; Globulin 4.2 g/dL (2.4-3.5); Glucose 105 mg/dL (83-110); Lipase 34 U/L (8-78); Potassium 4.5 mmol/L (3.5-5.1); Protein, Total 7.9 g/dL (6.0-8.3); Sodium 133 mmol/L (136-145)
[2020-02-16 13:44] LABS: Bilirubin Negative (Negative); Blood, Urine Negative (Negative); Clarity Clear (Clear); Glucose, Urine (Dipstick) Normal (Negative); Ketone, Urine Negative (Negative); Leukocyte Negative Leu/uL (Negative); Nitrite Negative (Negative); Protein, Urine (Dipstick) Negative (Neg-Trace); Specific Gravity, Urine 1.021 (1.002-1.036); Urobilinogen Normal mg/dL (Less than 2)
--- NOTE | 2020-02-16 13:45 | ULT ---
Exam: Right upper quadrant ultrasound: HISTORY: Right upper quadrant abdominal pain COMPARISON: None FINDINGS: Liver: Mildly enlarged measuring 18 cm in craniocaudal dimensions. Increased echogenicity of the live r is seen most likely reflective of diffuse fatty infiltration. Gallbladder: Prominent fold in region of gallbladder neck, but no gallbladder calculus is seen. There is no gallbladder wall thickening or pericholecystic fluid Common bile duct: The common duct is normal in caliber measuring 0.4 cm in diameter. Pancreas: Limited visualized portions of the pancreas demonstrate a normal sonographic appearance. Right kidney: Right kidney demonstrates a normal sonographic appearance. The right kidney measures 1 0.3 cm in length. IVC: The visualized IVC demonstrates a normal sonographic appearance. IMPRESSION: 1. Mild hepatomegaly with fatty infiltration of the liver. 2. No gallbladder calculus is seen. Common duct is normal in caliber.
== END 2020-02-16 14:28 | disposition home or self-care (01) ==
LOC: ERS 12:25
DX: R10.11 Right upper quadrant pain (principal); E11.9 Type 2 diabetes mellitus without complications; I10 Essential (primary) hypertension; E66.9 Obesity, unspecified; J44.9 Chronic obstructive pulmonary disease, unspecified; E03.9 Hypothyroidism, unspecified; K21.9 Gastro-esophageal reflux disease without esophagitis; E78.5 Hyperlipidemia, unspecified; E78.00 Pure hypercholesterolemia, unspecified; F41.9 Anxiety disorder, unspecified; F32.9 Major depressive disorder, single episode, unspecified; Z86.73 Personal history of transient ischemic attack (TIA), and cerebral infarction without residual deficits; Z87.891 Personal history of nicotine dependence; Z79.84 Long term (current) use of oral hypoglycemic drugs; Z79.899 Other long term (current) drug therapy
CPT/HCPCS: 36415; 76705; 80053; 81003; 83605; 83690; 85025; 96360

== ENCOUNTER 2020-11-04 01:32 | Observation (INO) | payer MEDICARE ==
[2020-11-04] MEDS ORDERED: Nitroglycerin 2% Ointment 1 INCH/1 GM Packet ONE (01:40)
[2020-11-04 02:02] LABS: #Eosinphils 0.2 thou/uL (0.0-0.7); #Lymphocytes 2.1 thou/uL (1.20-3.40); #Neutrophils 8.7 thou/uL (1.40-6.50); %Basophils 0.2 % (0.0-1.0); %Eosinophils 1.7 % (0.0-10.0); %Lymphocytes 17.1 % (21.0-51.0); %Monocytes 8.6 % (0.0-10.0); %Neutrophils 72.3 % (42.0-75.0); Hemoglobin 12.4 g/dL (12.0-16.0); Mean Corpuscular HGB CONC 31.8 g/dL (32.0-36.0); Mean Corpuscular Hemoglobin 28.6 pg (27.0-31.0); Mean Corpuscular Volume 89.9 fL (78.0-98.0); Mean Platelet Volume 7.6 fL (7.4-10.4); Platelet Count 268 thou/uL (130-400); RBC Distribution Width 13.6 % (11.5-14.5); Red Blood Cell (RBC) Count 4.33 mill/uL (4.20-5.40)
[2020-11-04 02:24] LABS: ALT (SGPT) 20 U/L (8-55); AST (SGOT) 20 U/L (5-34); Albumin 3.6 g/dL (3.4-4.8); Alkaline Phosphatase 61 U/L (40-110); Anion Gap 14 mmol/L (10-20); BUN (Urea Nitrogen) 10 mg/dL (9.8-20.1); Bilirubin, Total 0.6 mg/dL (0.2-1.2); CK (CPK) 63 U/L (29-168); Calc. Creatinine Clearance 0 mL/min (70-130); Carbon Dioxide 30 mmol/L (23-31); Chloride 97 mmol/L (98-107); Globulin 3.3 g/dL (2.4-3.5); Glucose 134 mg/dL (83-110); Potassium 3.8 mmol/L (3.5-5.1); Protein, Total 6.9 g/dL (5.8-8.1); Sodium 137 mmol/L (136-145)
[2020-11-04] MEDS ORDERED: Mag-Al 1200 mg/1200 mg/30 ML UDCUP ONE (03:04)
[2020-11-04] MEDS ORDERED: Lidocaine Viscous Sol 2% 15 ml UD Cup ONE (03:04)
[2020-11-04 05:15] LABS: Troponin I Less than 0.010 ng/mL (< 0.028)
[2020-11-04] MEDS ORDERED: Ondansetron PF 4 MG/2 ML Vial IVP PRN (05:45)
[2020-11-04] MEDS ORDERED: Ondansetron ODT 4 MG TAB SL PRN (05:45)
[2020-11-04 05:47] VITALS: BMI 50.3
[2020-11-04 07:54] LABS: Troponin I Less than 0.010 ng/mL (< 0.028)
[2020-11-04] MEDS ORDERED: Bupropion 150 MG XL TAB PO SCH (09:00)
[2020-11-04] MEDS ORDERED: Albuterol Sulfate 2.5 mg/3 ml Neb EZPAP PRN (09:23)
[2020-11-04] MEDS ORDERED: predniSONE 20 MG TAB PO SCH (09:30)
[2020-11-04] MEDS ORDERED: guaiFENesin ER 600 MG TAB PO SCH (09:30)
[2020-11-04] MEDS ORDERED: Furosemide 40 MG/4 ML VIAL SLOW IVP SCH (09:30)
[2020-11-04] MEDS ORDERED: guaiFENesin ER 600 MG TAB PO PRN (09:41)
[2020-11-04] MEDS ORDERED: traMADol HCl 50 MG TAB PO PRN (09:41)
[2020-11-04] MEDS ORDERED: Non-Formulary Item 1 EACH (Ventolin Hfa Inhaler [Ventolin Hfa Inhaler] 60 PUFF Aer) INH PRN (09:41)
[2020-11-04 10:45] LABS: SARS-CoV-2 NAA Rapid Test Not Detected (NotDetected)
[2020-11-04 13:28] VITALS: BP 188/79; TEMP 98.1
[2020-11-04] MEDS ORDERED: Acetaminophen 325 MG TAB PO PRN (13:31)
[2020-11-04] MEDS ORDERED: Aspirin Chewable 81 MG TAB PO SCH (21:00)
[2020-11-04] MEDS ORDERED: Potassium Chloride 20 MEQ TAB PO SCH (21:00)
[2020-11-04] MEDS ORDERED: metFORMIN 500 MG TAB PO SCH (21:00)
[2020-11-04] MEDS ORDERED: Cholecalciferol 1,000 UNITS (25 MCG) TAB PO SCH (21:00)
[2020-11-04] MEDS ORDERED: FLUoxetine HCl 20 MG CAP PO SCH (21:00)
[2020-11-04] MEDS ORDERED: ALPRAZolam 0.5 MG TAB PO SCH (21:00)
[2020-11-04] MEDS ORDERED: rOPINIRole HCl 2 MG TAB PO SCH (21:00)
[2020-11-04] MEDS ORDERED: Gabapentin 300 MG CAP PO SCH (21:00)
[2020-11-04] MEDS ORDERED: Calcium Carbonate 500 MG TAB PO SCH (21:00)
[2020-11-05] MEDS ORDERED: Atorvastatin Calcium 10 MG TAB PO SCH (09:00)
[2020-11-05] MEDS ORDERED: Azithromycin 250 MG TAB PO SCH (09:00)
[2020-11-05] MEDS ORDERED: Fluticasone Propionate Nasal Spray 16 gm Bottle NASAL SCH (09:00)
[2020-11-05] MEDS ORDERED: Losartan 25 MG TAB PO SCH (09:00)
== END 2020-11-04 15:09 | disposition home or self-care (01) ==
LOC: ERS 01:32 → 2SW 03:49
PROVIDERS: ADMIT Internal Medicine; ATTEND Internal Medicine
DX: R07.89 Other chest pain (principal); D72.829 Elevated white blood cell count, unspecified; J44.9 Chronic obstructive pulmonary disease, unspecified; J96.10 Chronic respiratory failure, unspecified whether with hypoxia or hypercapnia; I10 Essential (primary) hypertension; E11.9 Type 2 diabetes mellitus without complications; K21.9 Gastro-esophageal reflux disease without esophagitis; G25.81 Restless legs syndrome; Z87.891 Personal history of nicotine dependence; Z79.82 Long term (current) use of aspirin; Z79.84 Long term (current) use of oral hypoglycemic drugs; Z79.899 Other long term (current) drug therapy; Z91.040 Latex allergy status; Z91.048 Other nonmedicinal substance allergy status; Z99.81 Dependence on supplemental oxygen; Z20.822 Contact with and (suspected) exposure to COVID-19
CPT/HCPCS: 0240U; 71045; 80053; 82550; 83880; 84484 ×2; 85025; 93005; 94640; 97139; 99285; 36415; 96374; G0378; J1940; J7512; J7620

== ENCOUNTER 2020-12-07 09:24 | Outpatient (CLI) | payer MEDICARE | END 2020-12-07 09:25 | disposition home or self-care (01) | LOC: BICCT 09:24 | PROVIDERS: ATTEND Family Medicine | DX: R10.11 Right upper quadrant pain (principal); R16.0 Hepatomegaly, not elsewhere classified | CPT/HCPCS: 74160; 82565 ==

== ENCOUNTER 2021-03-02 08:33 | Day surgery (SDC) | payer MEDICARE ==
[2021-02-21 15:16] VITALS: BMI 50.4
[2021-03-02 08:24] LABS: #Eosinphils 0.1 thou/uL (0.0-0.7); #Lymphocytes 1.7 thou/uL (1.20-3.40); #Monocytes 0.8 thou/uL (0.11-0.59); #Neutrophils 8.4 thou/uL (1.40-6.50); %Basophils 0.2 % (0.0-1.0); %Eosinophils 1.1 % (0.0-10.0); %Monocytes 7.2 % (0.0-10.0); %Neutrophils 76.6 % (42.0-75.0); Hemoglobin 12.6 g/dL (12.0-16.0); Mean Corpuscular Hemoglobin 27.9 pg (27.0-31.0); Mean Corpuscular Volume 87.4 fL (78.0-98.0); Mean Platelet Volume 7.8 fL (7.4-10.4); Platelet Count 252 thou/uL (130-400); RBC Distribution Width 13.5 % (11.5-14.5)
[2021-03-02 08:34] LABS: PTT 27.3 sec (22.9-36.1); Prothrombin Time 13.4 sec (12.0-14.7)
[2021-03-02 11:12] VITALS: TEMP 97.7
[2021-03-02 12:07] VITALS: BP 120/56
== END 2021-03-02 12:17 | disposition home or self-care (01) ==
LOC: CT 08:33
PROVIDERS: ATTEND Physician Assistant
PROC: 0FB03ZX Excision of Liver, Percutaneous Approach, Diagnostic (ICD-10-PCS; principal; 2021-03-02)
DX: C22.0 Liver cell carcinoma (principal); E78.5 Hyperlipidemia, unspecified; J44.9 Chronic obstructive pulmonary disease, unspecified; E11.9 Type 2 diabetes mellitus without complications; M19.90 Unspecified osteoarthritis, unspecified site; I10 Essential (primary) hypertension; Z87.891 Personal history of nicotine dependence; K21.9 Gastro-esophageal reflux disease without esophagitis; G25.81 Restless legs syndrome; Z86.73 Personal history of transient ischemic attack (TIA), and cerebral infarction without residual deficits; Z79.82 Long term (current) use of aspirin; Z79.84 Long term (current) use of oral hypoglycemic drugs; Z79.899 Other long term (current) drug therapy; Z91.040 Latex allergy status; Z91.048 Other nonmedicinal substance allergy status
CPT/HCPCS: 47000; 77012; 85025; 85610; 85730; 88307; 88325; 88333

== ENCOUNTER 2021-03-29 10:22 | Outpatient (CLI) | payer MEDICARE | END 2021-03-29 10:23 | disposition home or self-care (01) | LOC: PET 10:22 | PROVIDERS: ATTEND Internal Medicine Hematology & Oncology | DX: C22.1 Intrahepatic bile duct carcinoma (principal); R93.7 Abnormal findings on diagnostic imaging of other parts of musculoskeletal system | CPT/HCPCS: 78815; A9552 ==

== ENCOUNTER 2021-04-18 08:43 | Outpatient (CLI) | payer MEDICARE | END 2021-04-18 08:44 | disposition home or self-care (01) | LOC: RAD 08:43 | PROVIDERS: ATTEND Internal Medicine Critical Care Medicine | DX: R06.00 Dyspnea, unspecified (principal) | CPT/HCPCS: 71046 ==